=== PATIENT | male | born 1950 | race American Indian/Alaskan Native ===

== ENCOUNTER 2016-03-30 14:19 | Outpatient (CLI) | payer MEDICARE, OTHER ==
--- NOTE | 2016-03-30 15:10 | XRay Report ---
CHEST 2 VIEWS INDICATION: Cough. COMPARISON: 11/26/2015 FINDINGS: Frontal and lateral chest radiographs again demonstrate normal cardiomediastinal silhouette, mild aortic knob calcifications and clear lungs without pleural effusions or CHF. Multilevel thoracic spondylosis. CONCLUSION: No acute disease. Thank you for the opportunity to participate in this patient's care.
== END 2016-03-30 14:20 | disposition home or self-care (01) ==
LOC: XRAY 14:19
PROVIDERS: ATTEND Internal Medicine
DX: M47.894 Other spondylosis, thoracic region (principal); I70.0 Atherosclerosis of aorta; R10.12 Left upper quadrant pain
CPT/HCPCS: 71020

== ENCOUNTER 2018-12-06 00:19 | Emergency (ER) | payer MEDICARE, OTHER ==
[2018-12-06 01:09] LABS: Basophils % (Auto) 0.3 % (0.0-1.8); Eosinophils # (Auto) 0.5 K/mm3 (0.0-0.4); Eosinophils % (Auto) 4.6 % (0.0-4.3); Hematocrit 44.9 % (35.5-45.6); Hemoglobin 14.9 gm/dl (11.8-15.2); Lymphocytes % (Auto) 29.3 % (13.4-35.0); Mean Corpuscular HGB Conc 33 % (32-34); Mean Corpuscular Volume 97 fl (84-94); Monocytes # (Auto) 0.7 K/mm3 (0.0-0.8); Monocytes % (Auto) 6.9 % (0.0-7.3); Platelet Count 231 K/mm3 (140-440); Red Blood Count 4.65 M/mm3 (3.65-5.03); Red Cell Distribution Width 13.3 % (13.2-15.2)
--- NOTE | 2018-12-06 01:13 | XRay Report ---
CHEST 1 VIEW INDICATION / CLINICAL INFORMATION: Chest Pain. COMPARISON: 07/13/2017 FINDINGS: SUPPORT DEVICES: None. HEART / MEDIASTINUM: No significant abnormality. LUNGS / PLEURA: No significant pulmonary or pleural abnormality. No pneumothorax. ADDITIONAL FINDINGS: No significant additional findings. IMPRESSION: 1. No significant change Signer Name: Cem Vickers MD Signed: 12/06/2018 1:08 AM Workstation Name: [id number]
[2018-12-06 01:20] LABS: BUN/Creatinine Ratio 11; Blood Urea Nitrogen 20 mg/dL (9-20); Hemolysis Index 39
[2018-12-06] MEDS ORDERED: LIDOCAINE 2%/EPINEPHRINE 1:200,000 VIAL (20 ML) INFILTRATI ONE (01:52)
[2018-12-06] MEDS ORDERED: hydrALAZINE 20 MG/1 ML INJ IV ONE (01:52)
[2018-12-06] MEDS ORDERED: MORPHINE 4 MG/1 ML INJ IV ONE (01:52)
--- NOTE | 2018-12-06 01:54 | Emergency Department Report ---
ED General Adult HPI - General Chief complaint: Dyspnea/Respdistress Stated complaint: DOMINGO, BACK PAIN, CHEST PAIN Time Seen by Provider: 12/06/18 01:19 Source: patient, RN notes reviewed, old records reviewed Mode of arrival: Ambulatory Limitations: No Limitations - History of Present Illness Initial comments: This is a 68-year-old gentleman. This patient is not known to this provider previously. He has a primary care doctor but cannot recall their name. Past medical history includes renal insufficiency, hypertension, compression fracture Patient had a low probability nuclear medicine study at this hospital June 2018. The patient presents to the ER with a primary complaint of nontraumatic right- sided trapezius and paracervical pain. The pain started at 4:00 PM yesterday. The pain is sharp and throbbing, increases with palpation, decreases with rest in position. It moves to other parts of the trapezius. It does not cross midline. It also increases with cough. Patient has a chronic cough for a few months. The patient denies DVT, pulmonary embolus risk factors. He denies chest pain. He has chronic shortness of breath which is not new, worsening or different. He denies vomiting and diaphoresis. He indicates no recent trauma, and no recent repetitive activity or range of motion. The patient also denies recent chiropractic manipulation, or low mechanism motor vehicle accident. -: Gradual, hour(s) Location: back, right Radiation: back Quality: aching Consistency: intermittent Improves with: other Worsens with: other - Related Data Previous Rx's Medication Instructions Recorded Last Taken Type Acetaminophen [Non-Aspirin Extra 500 mg PO Q6HR PRN #30 tablet 12/06/18 Unknown Rx Strength] Menthol/Camphor [B[place] 50 gm TP QID PRN #1 cream..g. 12/06/18 Unknown Rx Neck-Shoulder Cream] Allergies Allergy/AdvReac Type Severity Reaction Status Date / Time ibuprofen [From Motrin] AdvReac Hives Verified 07/13/18 12:08 ED Review of Systems ROS: Stated complaint: DOMINGO, BACK PAIN, CHEST PAIN Other details as noted in HPI Constitutional: denies: chills, fever, weakness Eyes: denies: eye discharge Respiratory: cough Cardiovascular: denies: chest pain, syncope Gastrointestinal: denies: abdominal pain, nausea, vomiting Musculoskeletal: back pain Skin: denies: lesions Neurological: denies: weakness, numbness, paresthesias, confusion Psychiatric: anxiety Hematological/Lymphatic: denies: easy bleeding ED Past Medical Hx - Past Medical History Previous Medical History?: Yes Hx Hypertension: Yes Hx Heart Attack/AMI: No Hx Congestive Heart Failure: No Hx Diabetes: No Hx Deep Vein Thrombosis: No Hx Pulmonary Embolism: No Hx Liver Disease: No Hx Renal Disease: No Hx Sickle Cell Disease: No Hx Arthritis: No Hx Headaches / Migraines: No Hx Seizures: No Hx Kidney Stones: No Hx Asthma: No Hx COPD: No Hx Tuberculosis: No Hx Dementia: No Hx HIV: No Additional medical history: hiatal hernia. States left chest trauma with broken ribs and punctured lung years ago. - Surgical History Past Surgical History?: No Hx Coronary Stent: No Hx Pacemaker: No Hx Internal Defibrillator: No - Social History Smoking Status: Never Smoker Substance Use Type: None - Medications Home Medications: Home Medications Medication Instructions Recorded Confirmed Last Taken Type Acetaminophen [Non-Aspirin Extra 500 mg PO Q6HR PRN #30 tablet 12/06/18 Unknown Rx Strength] Menthol/Camphor [[place] 50 gm TP QID PRN #1 cream..g. 12/06/18 Unknown Rx Neck-Shoulder Cream] ED Physical Exam - General Limitations: No Limitations General appearance: alert, anxious, obese - Head Head exam: Present: atraumatic, normocephalic - Eye Eye exam: Present: normal appearance, EOMI. Absent: nystagmus - ENT ENT exam: Present: normal exam, normal orophraynx, mucous membranes moist, normal external ear exam - Neck Neck exam: Present: normal inspection, tenderness (there is reproducible right sided paracervical tenderness and trapezius tenderness. There is reproducible point tenderness on the trapezius.), full ROM, other (is no carotid bruit. There is no carotid hematoma. There is no expansile bleeding.) - Respiratory Respiratory exam: Present: normal lung sounds bilaterally. Absent: respiratory distress - Cardiovascular Cardiovascular Exam: Present: regular rate, normal rhythm, normal heart sounds. Absent: bradycardia, tachycardia, irregular rhythm, systolic murmur, diastolic murmur, rubs, gallop - GI/Abdominal GI/Abdominal exam: Present: soft, normal bowel sounds. Absent: distended, tenderness, guarding, rebound, rigid, pulsatile mass - Rectal Rectal exam: Present: deferred - Extremities Exam Extremities exam: Present: normal inspection, full ROM, other (2+ pulses noted in the bilateral upper, lower extremities. Compartments soft. No long bony tenderness. The pelvis is stable.). Absent: pedal edema, joint swelling, calf tenderness - Back Exam Back exam: Present: normal inspection, full ROM, muscle spasm, paraspinal tenderness. Absent: CVA tenderness (R), CVA tenderness (L) - Neurological Exam Neurological exam: Present: alert, oriented X3, other (Extraocular movements intact. Tongue midline. No facial droop. Facial sensation intact to light touch in the V1, V2, V3 distribution bilaterally. 5 and 5 strength in 4 extremities.. Sensation is intact to light touch in 4 extremities.). Absent: motor sensory deficit - Psychiatric Psychiatric exam: Present: anxious - Skin Skin exam: Present: warm, dry, intact, normal color. Absent: rash ED Course Vital Signs 12/06/18 12/06/18 12/06/18 00:30 00:33 02:02 Temperature 98.0 F Pulse Rate 73 61 Respiratory 17 20 10 L Rate Blood Pressure 190/100 Blood Pressure [Right] O2 Sat by Pulse 97 97 Oximetry 12/06/18 12/06/18 12/06/18 02:10 02:30 03:00 Temperature Pulse Rate 65 65 79 Respiratory 22 17 Rate Blood Pressure 176/96 155/74 176/81 Blood Pressure [Right] O2 Sat by Pulse Oximetry 12/06/18 12/06/18 12/06/18 03:30 04:00 04:38 Temperature Pulse Rate 76 76 85 Respiratory 13 21 17 Rate Blood Pressure 166/88 176/93 Blood Pressure 157/96 [Right] O2 Sat by Pulse 97 Oximetry - Reevaluation(s) Reevaluation #1: 12/06/18 02:23 Differential diagnosis, including but not limited to: Trapezius sprain, strain, muscle cramp, pulmonary embolism, pneumonia, obstructive sleep apnea, obesity hypoventilation syndrome Assessment and plan: 68-year-old gentleman, appears to be obese, with complaint of cough for months, now with reproducible pleuritic right-sided trapezius pain, suspect musculoskeletal etiology. He does not endorse chest pain to this provider. EKG unchanged times prior. This is unlikely to be acute coronary syndrome. We will treat his symptoms. Elevated blood pressure is reviewed and appreciated. This is likely secondary to pain. Has equal pulses in the upper, lower extremities, x-ray of the chest appears to be unchanged from prior, we do not suspect aortic disease at this time. Reevaluation #2: 12/06/18 03:26 Troponin is negative 2. D-dimer is negative. Blood pressure improved, now in the 150s. Endorses improvement in symptoms. Pain is still present. Patient will be discharged with prescription for nonnarcotic pain medication, he'll need to follow up with his outpatient primary care doctor for physical therapy. We discussed return precautions. The patient has verbalized understanding. He can follow up with his primary care doctor or community health counselor for his elevated blood pressure, and acute on chronic cough and shortness of breath. Of note, the patient endorses intermittent compliance with his CPAP. We discussed the importance of long-term CPAP compliance. Reevaluation #3: 12/06/18 04:33 Patient sleeping comfortably and is in no acute distress. Blood pressure 144 over 70s. Appears quite comfortable. - Procedure Description Procedures done: After verbal informed consent was obtained, the patient's right trapezius was cleansed in typical aseptic fashion with alcohol swabs. Then, 6 mL of 2% lidocaine with epinephrine were drawn up in a syringe, and patient had 3 individual trigger point injections administered by myself, approximately 2 mL each, using a 26-gauge needle. Patient endorses improvement of symptoms after trigger point injections. No obvious significant bleeding or complications were noted, the patient tolerated the procedure well. ED Medical Decision Making - Lab Data Result diagrams: 12/06/18 00:36 12/06/18 00:36 Vital Signs (72 hours) 12/06/18 12/06/18 00:33 02:10 Temperature 98.0 F Pulse Rate 73 65 Respiratory 20 Rate Blood Pressure 190/100 176/96 O2 Sat by Pulse 97 Oximetry Lab Results 12/06/18 12/06/18 Range/Units 00:36 00:36 WBC 10.3 (4.5-11.0) K/mm3 RBC 4.65 (3.65-5.03) M/mm3 Hgb 14.9 (11.8-15.2) gm/dl Hct 44.9 (35.5-45.6) % MCV 97 H (84-94) fl MCH 32 (28-32) pg MCHC 33 (32-34) % RDW 13.3 (13.2-15.2) % Plt Count 231 (140-440) K/mm3 Lymph % (Auto) 29.3 (13.4-35.0) % [place] % (Auto) 6.9 (0.0-7.3) % Eos % (Auto) 4.6 H (0.0-4.3) % Baso % (Auto) 0.3 (0.0-1.8) % Lymph # 3.0 (1.2-5.4) K/mm3 [place] # 0.7 (0.0-0.8) K/mm3 Eos # 0.5 H (0.0-0.4) K/mm3 Baso # 0.0 (0.0-0.1) K/mm3 Seg Neutrophils % 58.9 (40.0-70.0) % Seg Neutrophils # 6.1 (1.8-7.7) K/mm3 Sodium 144 (137-145) mmol/L Potassium 4.4 (3.6-5.0) mmol/L Chloride 106.5 (98-107) mmol/L Carbon Dioxide 28 (22-30) mmol/L Anion Gap 14 mmol/L BUN 20 (9-20) mg/dL Creatinine 1.8 H (0.8-1.5) mg/dL Estimated GFR 45 ml/min BUN/Creatinine Ratio 11 % Glucose 112 H (75-100) mg/dL Calcium 9.0 (8.4-10.2) mg/dL Troponin T < 0.010 (0.00-0.029) ng/mL - EKG Data -: EKG Interpreted by Ks EKG shows normal: sinus rhythm Rate: normal - EKG Data 12/06/18 02:22 EKG #1 shows a sinus rhythm, 80 beats per minute , there is a left axis deviation, there is a left anterior fascicular block, there is motion artifact, the QTC is within normal limits, there is low voltage in the lateral leads, the EKG is abnormal, it is not consistent with ST elevation myocardial infarction. When compared to prior EKG from June 2018, appears to be grossly unchanged EKG #2 appears to be unchanged from prior, although left axis deviation appears to be less prominent Neither EKG is consistent with ST elevation myocardial infarction. - Radiology Data Radiology results: pending, report reviewed, image reviewed Print Report Referring Physician: ED RENETTA Patient Name: CHE BARRETT Date of : 1950 Sex: Male Report Date: 2018-12-06 Report Status: Finalized Findings [facility] [address] [place] [address] XRay Report Signed Patient: CHE BARRETT JR MR#: [id number] : 1950 Acct:[id number] Age/Sex: 68 / M ADM Date: 12/06/18 Loc: ED Attending Dr: Ordering Physician: JOBY JACKSON MD Date of Service: 12/06/18 Procedure(s): XR chest 1V ap Accession Number(s): [id number] cc: ED MD RENETTA Fluoro Time In Minutes: CHEST 1 VIEW INDICATION / CLINICAL INFORMATION: Chest Pain. COMPARISON: 07/13/2017 FINDINGS: SUPPORT DEVICES: None. HEART / MEDIASTINUM: No significant abnormality. LUNGS / PLEURA: No significant pulmonary or pleural abnormality. No pneumothorax. ADDITIONAL FINDINGS: No significant additional findings. IMPRESSION: 1. No significant change Signer Name: Cem Vickers MD Signed: 12/06/2018 1:08 AM Workstation Name: [id number] Transcribed By: YUSUF Dictated By: Cem Vickers MD Electronically Authenticated By: Cem Vickers MD Signed Date/Time: 12/06/18 0108 Ordering Physician: YAZMIN BURRIS Date of Service: 07/13/18 Procedure(s): XR chest routine 2V Accession Number(s): [id number] cc: YAZMIN BURRIS Fluoro Time In Minutes: PROCEDURE: XR CHEST ROUTINE 2V TECHNIQUE: PA and lateral chest radiographs were obtained. HISTORY: Chest Pain COMPARISONS: None. FINDINGS: Heart: Normal. Mediastinum/Vessels: Normal. Lungs/Pleural space: Normal. Bony thorax: No acute osseous abnormality. IMPRESSION: No acute process in the chest. This document is electronically signed by Adriane Hoyos., Jul 13 2018 03:53:37 PM ET Transcribed By: MG Dictated By: ADRIANE DUENAS MD Electronically Authenticated By: ADRIANE DUENAS MD Critical care attestation.: If time is entered above; I have spent that time in minutes in the direct care of this critically ill patient, excluding procedure time. ED Disposition Clinical Impression: Trapezius strain Qualifiers: Encounter type: initial encounter Laterality: right Qualified Code(s): S46.811A - Strain of other muscles, fascia and tendons at shoulder and upper arm level, right arm, initial encounter Hypertension Qualifiers: Hypertension type: unspecified Qualified Code(s): I10 - Essential (primary) hypertension Disposition: - TO HOME OR SELFCARE Is pt being admited?: No Does the pt Need Aspirin: No Condition: Stable Instructions: Hypertension (ED) Additional Instructions: Rest, avoid heavy lifting, and avoid strenuous physical activity. Take the pain medication as needed/directed. Patient may pursue alternative complementary therapy, such as massage, acupuncture, and alternating heat packs and ice packs. Recommend patient follow-up with an outpatient primary care doctor or community health counselor within the next 7 days for complaint of intermittent shortness of breath and high blood pressure. Recommend that patient uses CPAP every night as directed, and he should follow-up with his sleep specialist within the next 2 weeks to have setting this evaluated. Return to the emergency room right away with projectile vomiting, change in mental status, confusion, inability to tolerate liquid feeds, new, worsening or different symptoms not present on the initial emergency room evaluation. Prescriptions: Acetaminophen [Non-Aspirin Extra Strength] 500 mg PO Q6HR PRN #30 tablet PRN Reason: Pain , Severe (7-10) Menthol/Camphor [B[place] Neck-Shoulder Cream] 50 gm TP QID PRN #1 cream..g. PRN Reason: Pain , Severe (7-10) Referrals: PRIMARY CARE, [Referring] - 3-5 Days [facility] [Provider Group] - 3-5 Days [facility] [Provider Group] - 3-5 Days
[2018-12-06] MEDS ORDERED: ACETAMINOPHEN 325 MG TAB PO ONE (03:09)
[2018-12-06] MEDS ORDERED: LORazepam 2 MG/ML VIAL IV STA (03:32)
[2018-12-06 04:39] VITALS: BP 157/96
== END 2018-12-06 04:44 | disposition home or self-care (01) ==
LOC: ED 00:19
DX: S46.811A Strain of other muscles, fascia and tendons at shoulder and upper arm level, right arm, initial encounter (principal); I10 Essential (primary) hypertension; Z88.5 Allergy status to narcotic agent; Z79.899 Other long term (current) drug therapy; X58.XXXA Exposure to other specified factors, initial encounter; Y93.89 Activity, other specified; Y92.89 Other specified places as the place of occurrence of the external cause; Y99.8 Other external cause status
CPT/HCPCS: 36415; 71045; 80048; 82550; 83735; 84484; 85025; 85379; 93005; 93010; 96374; 96375; 99284; J0360; J2060; J2270

== ENCOUNTER 2018-12-18 11:18 | Outpatient (CLI) | payer MEDICARE, OTHER ==
[2018-12-18 12:25] LABS: Bilirubin,Urine NEG (Negative); Blood,Urine NEG (Negative); Color,Urine Yellow (Yellow); Protein,Urine <15 mg/dL mg/dL (Negative); Urobilinogen,Urine < 2.0 mg/dL (<2.0); WBC,Urine < 1.0 /HPF (0.0-6.0)
[2018-12-18 12:29] LABS: Chol/HDL Ratio 3.63 %
[2018-12-18 13:04] LABS: Microalbumin/Creatinine Ratio 8.2 ug/mg
[2018-12-22 15:08] LABS: Vitamin D, 25-OH, D2 <4 ng/mL
== END 2018-12-18 11:19 | disposition home or self-care (01) ==
LOC: LAB 11:18
PROVIDERS: ATTEND Internal Medicine
DX: R73.03 Prediabetes (principal); E78.5 Hyperlipidemia, unspecified; E66.9 Obesity, unspecified; E55.9 Vitamin D deficiency, unspecified; I12.9 Hypertensive chronic kidney disease with stage 1 through stage 4 chronic kidney disease, or unspecified chronic kidney disease; N18.3 Chronic kidney disease, stage 3 (moderate); E78.00 Pure hypercholesterolemia, unspecified
CPT/HCPCS: 36415; 80061; 81001; 82043; 82306; 82607; 83036; 84443

== ENCOUNTER 2020-06-10 07:33 | Day surgery (SDC) | payer MEDICARE, OTHER ==
--- NOTE | 2020-06-07 12:03 | Anesthesia Consultation ---
Anesthesia Consult and Med Hx Date of service: 06/10/20 - Airway Anesthetic Teeth Evaluation: Dentures ROM Head & Neck: Adequate Mental/Hyoid Distance: Adequate Mallampati Class: Class II Intubation Access Assessment: Probably Good - Pulmonary Exam CTA: Yes - Cardiac Exam Cardiac Exam: RRR - Pre-Operative Health Status ASA Pre-Surgery Classification: ASA2 Proposed Anesthetic Plan: General Nerve Block: IS - Pulmonary Hx Smoking: No Hx Respiratory Symptoms: No Hx Sleep Apnea: Yes (compliant with CPAP) - Cardiovascular System Hx Hypertension: Yes Hx Heart Attack/AMI: No (>4mets functional capacity) Hx Percutaneous Transluminal Coronary Angioplasty (PTCA): No - Central Nervous System CVA: No - Endocrine Hx Renal Disease: Yes (CKD) Hx Liver Disease: No Hx Insulin Dependent Diabetes: No Hx Non-Insulin Dependent Diabetes: No Hx Thyroid Disease: No - Other Systems Hx Obesity: Yes (BMI 36) - Additional Comments Anesthesia Medical History Comments: No hx anesthetic complications.
[~2020-06-10 07:33] MED LIST: ACETAMINOPHEN 500 MG TAB PO SCH; BACTERIOSTATIC SODIUM CHLORIDE 0.9% 30 ML VIAL INFILTRATI ONE; EPINEPHrine/PF 1 MG/1 ML INJ ONE; LACTATED RINGERS 1,000 ML IV SCH; LIDOCAINE MPF (2%) 20 MG/1 ML VIAL 5 ML ONE; MIDAZOLAM 2 MG/2 ML INJ IV NR; ONDANSETRON 4 MG/2 ML INJ ONE; ceFAZolin/Water 2 GM/20 ML 2 GM/20 ML SYRINGE IV NR; dexAMETHasone 20 MG/5 ML VIAL ONE; fentaNYL 100 MCG/2 ML INJ IV PRN; fentaNYL 100 MCG/2 ML INJ ONE; methylPREDNISolone ACETATE 40 MG/1 ML INJ ONE; propofoL 200 MG/20 ML VIAL IV ONE
--- NOTE | 2020-06-10 07:33 | Anesthesia Day of Surgery ---
Anesthesia Day of Surgery - Day of Surgery Patient Examined: Yes Patient H&P Reviewed: Yes Patient is NPO: Yes
[2020-06-10] MEDS ORDERED: dexAMETHasone 4 MG/ML VIAL ONE (07:34)
[2020-06-10] MEDS ORDERED: SUCCINYLCHOLINE CHLORIDE 200 MG/10 ML INJ MDV ONE (07:34)
[2020-06-10] MEDS ORDERED: BUPIVACAINE/PF (0.25%) 2.5 MG/ML 30 ML VIAL INFILTRATI ONE (07:34)
[2020-06-10] MEDS ORDERED: ONDANSETRON 4 MG/2 ML INJ IV PRN (08:30)
[2020-06-10] MEDS ORDERED: fentaNYL 100 MCG/2 ML INJ IV PRN (08:30)
[2020-06-10] MEDS ORDERED: ePHEDrine SULFATE 50 MG/1 ML INJ ONE (08:41)
[2020-06-10] MEDS ORDERED: .SODIUM CHLORIDE 0.9% IRRIG SOLN 3000 ML IR ONE (09:13)
[2020-06-10] MEDS ORDERED: EPINEPHrine/PF 1 MG/1 ML INJ IV ONE (09:13)
[2020-06-10] MEDS ORDERED: SODIUM CHLORIDE P/F VIAL 10 ML 10 ML ONE (09:40)
[2020-06-10] MEDS ORDERED: LACTATED RINGERS 1,000 ML ONE (10:12)
--- NOTE | 2020-06-10 10:23 | Procedure Note ---
Date of procedure: 06/10/20 Pre-op diagnosis: Right shoulder pain Post-op diagnosis: other (Impingement syndrome right shoulder) Procedure: Arthroscopy [right] shoulder with subacromial decompression Procedure The patient was brought to the OR after being given a scalene nerve block for postop pain management, he was placed on the table supine following induction with MAC anesthesia patient was turned into the [left] lateral decubitus position at which point the right shoulder was prepped and draped in the usual sterile manner. A timeout procedure was done to identify the patient and the correct operative site. Routine arthroscopic portals were made into the subacromial space examination of the subacromial space revealed patient had abundant bursal thickening with apparent partial thickness tears in the supraspinatus tendon along with a large bone spur noted at the distal acromion using a combination of arthroscopic shaver and tissue ablator the subacromial space was debrided of soft tissue and the arm was then rotated internally and externally to see if there were a full-thickness rotator cuff tear done was seen next the arthroscope was placed into the glenohumeral joint and examination here revealed the patient to have very little in the way of arthritic changes along the humeral head. In the glenoid fossa he was noted to have thinning of the labral tissue the biceps labral complex appeared to be intact without any undue tension noted next the arthroscope was removed from the glenohumeral joint and then repositioned into the subacromial space using a 5.5 bur or acromionizer the bone spurs were debrided. A second look was done to see if there are any any residual bony and soft tissue debris and none was seen the arthroscope was then removed the stab wounds were repaired routine postop dressings were applied and the patient tolerated the procedure Anesthesia: MAC, regional Surgeon: DEMETRI VAZQUEZ (Kerri Cochran, 1st assist) Estimated blood loss: minimal Pathology: none Condition: stable Disposition: PACU
[2020-06-10 11:06] VITALS: BP 118/78
--- NOTE | 2020-06-10 12:51 | Post Anesthesia Evaluation ---
- Post Anesthesia Evaluation Patient Participated: Yes Airway Patent: Yes Stable Respiratory Function: Yes Nausea/Vomiting: No Temp > 96.8F: Yes Pain Manageable: Yes Adequeate Hydration: Yes Anesthesia Complications: No Block Receding Appropriately: Yes (sling provided)
== END 2020-06-10 11:50 | disposition home or self-care (01) ==
LOC: OR 07:33
PROVIDERS: ATTEND Orthopaedic Surgery
DX: M25.511 Pain in right shoulder (principal); M75.41 Impingement syndrome of right shoulder; Z20.822 Contact with and (suspected) exposure to COVID-19; I12.9 Hypertensive chronic kidney disease with stage 1 through stage 4 chronic kidney disease, or unspecified chronic kidney disease; N18.30 Chronic kidney disease, stage 3 unspecified; E78.00 Pure hypercholesterolemia, unspecified; J44.9 Chronic obstructive pulmonary disease, unspecified; G47.30 Sleep apnea, unspecified; E66.9 Obesity, unspecified; Z88.8 Allergy status to other drugs, medicaments and biological substances; Z98.52 Vasectomy status; Z79.899 Other long term (current) drug therapy; Z68.36 Body mass index [BMI] 36.0-36.9, adult
CPT/HCPCS: 29822; 64415; A4217; J0171; J0330; J0690; J1030; J1100; J2250; J2405; J2704; J3010; J7120; U0003; V2790

== ENCOUNTER 2020-12-12 03:35 | Emergency (ER) | payer MEDICARE, OTHER ==
[2020-12-12] MEDS ORDERED: ONDANSETRON 4 MG/2 ML INJ IV ONE (04:10)
[2020-12-12] MEDS ORDERED: MORPHINE 2 MG/1 ML INJ IV ONE (04:10)
--- NOTE | 2020-12-12 04:13 | Emergency Department Report ---
<MICHAEL PEREZ C - Last Filed: 12/12/20 08:56> ED Abdominal Pain HPI - General Chief Complaint: Chest Pain Stated Complaint: CHEST/ABDOMINAL PAIN Time Seen by Provider: 12/12/20 03:49 - Related Data Home Medications Medication Instructions Recorded Confirmed Last Taken Cetirizine HCl 10 mg PO DAILY 06/01/20 12/12/20 06/09/20 21:00 Valsartan 160 mg PO DAILY 06/01/20 12/12/20 1 Day Ago ~12/11/20 Previous Rx's Medication Instructions Recorded Last Taken Type oxyCODONE /ACETAMINOPHEN [Percocet 1 tab PO Q6HR PRN #30 tablet 06/10/20 Unknown Rx 5/325] Famotidine [Pepcid] 20 mg PO BID #20 tablet 12/12/20 Unknown Rx Ondansetron [Zofran Odt] 4 mg PO Q8HR #20 tab.rapdis 12/12/20 Unknown Rx levoFLOXacin [Levaquin] 750 mg PO QDAY #7 tablet 12/12/20 Unknown Rx traMADoL [Ultram 50 MG tab] 50 mg PO Q6HR PRN #15 tablet 12/12/20 Unknown Rx Allergies Allergy/AdvReac Type Severity Reaction Status Date / Time ibuprofen [From Motrin] AdvReac Hives Verified 07/13/18 12:08 ED Past Medical Hx - Medications Home Medications: Home Medications Medication Instructions Recorded Confirmed Last Taken Type Cetirizine HCl 10 mg PO DAILY 06/01/20 12/12/20 06/09/20 21:00 History Valsartan 160 mg PO DAILY 06/01/20 12/12/20 1 Day Ago History ~12/11/20 oxyCODONE /ACETAMINOPHEN [Percocet 1 tab PO Q6HR PRN #30 tablet 06/10/20 12/12/20 Unknown Rx 5/325] Famotidine [Pepcid] 20 mg PO BID #20 tablet 12/12/20 Unknown Rx Ondansetron [Zofran Odt] 4 mg PO Q8HR #20 tab.rapdis 12/12/20 Unknown Rx levoFLOXacin [Levaquin] 750 mg PO QDAY #7 tablet 12/12/20 Unknown Rx traMADoL [Ultram 50 MG tab] 50 mg PO Q6HR PRN #15 tablet 12/12/20 Unknown Rx ED Course - Reevaluation(s) Reevaluation #1: 12/12/20 08:43 Patient states he feels much better than when he initially came to the department. He denies chest pain, abdominal pain, nausea, or vomiting - Consultations Consultation #1: 12/12/20 08:[address] Lanier general surgeon bail bonding agent recommends p.o. Levaquin and follow-up in office at 9 AM tomorrow ED Medical Decision Making - Lab Data Result diagrams: 12/12/20 04:16 12/12/20 04:16 Lab Results 12/12/20 12/12/20 12/12/20 Range/Units 04:16 04:16 04:16 WBC 9.4 (4.5-11.0) K/mm3 RBC 4.59 (3.65-5.03) M/mm3 Hgb 15.0 (11.8-15.2) gm/dl Hct 43.9 (35.5-45.6) % MCV 96 H (84-94) fl MCH 33 H (28-32) pg MCHC 34 (32-34) % RDW 13.4 (13.2-15.2) % Plt Count 215 (140-440) K/mm3 Lymph % (Auto) 17.2 (13.4-35.0) % [place] % (Auto) 5.6 (0.0-7.3) % Eos % (Auto) 1.6 (0.0-4.3) % Baso % (Auto) 0.9 (0.0-1.8) % Lymph # (Auto) 1.6 (1.2-5.4) K/mm3 [place] # (Auto) 0.5 (0.0-0.8) K/mm3 Eos # (Auto) 0.1 (0.0-0.4) K/mm3 Baso # (Auto) 0.1 (0.0-0.1) K/mm3 Seg Neutrophils % 74.7 H (40.0-70.0) % Seg Neutrophils # 7.0 (1.8-7.7) K/mm3 PT 13.0 (12.2-14.9) Sec. INR 0.88 (0.87-1.13) APTT 26.8 (24.2-36.6) Sec. Sodium 143 (137-145) mmol/L Potassium 4.5 (3.6-5.0) mmol/L Chloride 104.2 (98-107) mmol/L Carbon Dioxide 24 (22-30) mmol/L Anion Gap 19 mmol/L BUN 20 (9-20) mg/dL Creatinine 2.0 H (0.8-1.3) mg/dL Estimated GFR 40 ml/min BUN/Creatinine Ratio 10 % Glucose 118 H (75-100) mg/dL Calcium 10.0 (8.4-10.2) mg/dL Total Bilirubin 0.50 (0.1-1.2) mg/dL Direct Bilirubin < 0.2 (0-0.2) mg/dL Indirect Bilirubin 0.3 mg/dL AST 23 (5-40) units/L ALT 19 (7-56) units/L Alkaline Phosphatase 70 (35-129) units/L Troponin T < 0.010 (0.00-0.029) ng/mL Total Protein 7.7 (6.3-8.2) g/dL Albumin 4.4 (3.9-5) g/dL Albumin/Globulin Ratio 1.3 % Lipase 40 (13-60) units/L 10/17/ Range/Units 07:00 WBC (4.5-11.0) K/mm3 RBC (3.65-5.03) M/mm3 Hgb (11.8-15.2) gm/dl Hct (35.5-45.6) % MCV (84-94) fl MCH (28-32) pg MCHC (32-34) % RDW (13.2-15.2) % Plt Count (140-440) K/mm3 Lymph % (Auto) (13.4-35.0) % [place] % (Auto) (0.0-7.3) % Eos % (Auto) (0.0-4.3) % Baso % (Auto) (0.0-1.8) % Lymph # (Auto) (1.2-5.4) K/mm3 [place] # (Auto) (0.0-0.8) K/mm3 Eos # (Auto) (0.0-0.4) K/mm3 Baso # (Auto) (0.0-0.1) K/mm3 Seg Neutrophils % (40.0-70.0) % Seg Neutrophils # (1.8-7.7) K/mm3 PT (12.2-14.9) Sec. INR (0.87-1.13) APTT (24.2-36.6) Sec. Sodium (137-145) mmol/L Potassium (3.6-5.0) mmol/L Chloride (98-107) mmol/L Carbon Dioxide (22-30) mmol/L Anion Gap mmol/L BUN (9-20) mg/dL Creatinine (0.8-1.3) mg/dL Estimated GFR ml/min BUN/Creatinine Ratio % Glucose (75-100) mg/dL Calcium (8.4-10.2) mg/dL Total Bilirubin (0.1-1.2) mg/dL Direct Bilirubin (0-0.2) mg/dL Indirect Bilirubin mg/dL AST (5-40) units/L ALT (7-56) units/L Alkaline Phosphatase (35-129) units/L Troponin T < 0.010 (0.00-0.029) ng/mL Total Protein (6.3-8.2) g/dL Albumin (3.9-5) g/dL Albumin/Globulin Ratio % Lipase (13-60) units/L - EKG Data 12/12/20 08:47 Repeat EKG performed at 8:13 AM normal sinus without acute changes. No signs of ST elevation [place] - Radiology Data Radiology results: report reviewed CT ABDOMEN AND PELVIS WITHOUT CONTRAST INDICATION / CLINICAL INFORMATION: epigastric pain. TECHNIQUE: Axial CT images were obtained through the abdomen and pelvis without IV contrast. All CT scans at this location are performed using CT dose reduction for ALARA by means of automated exposure control. COMPARISON: None available. FINDINGS: LOWER CHEST: Noncalcified subpleural nodules are seen along the right middle and left lower lobes measuring up to 6.4 mm on image 5 of series 4. There is moderate coronary atherosclerosis. No other significant abnormalities. LIVER: No significant abnormality. GALLBLADDER: Multiple gallstones are seen with mild wall thickening and pericholecystic inflammation. BILE DUCTS: No significant abnormality. PANCREAS: No significant abnormality. SPLEEN: No significant abnormality. ADRENALS: No significant abnormality. KIDNEYS / URETERS: Multiple bilateral renal cysts are again seen measuring up to 8.3 cm along the mid pole of the right kidney. There is moderate renal atrophy without other significant abnormalities. STOMACH / SMALL BOWEL: No significant abnormality. COLON: Noninflammatory diverticulosis, mainly along the descending and sigmoid colon, without other significant abnormalities. APPENDIX: No significant abnormality. PERITONEUM: No free fluid. No free air. No fluid collection. LYMPH NODES: No significant adenopathy. AORTA / ARTERIES: There is mild generalized atherosclerosis. No other significant abnormality. IVC / VEINS: No significant abnormality. URINARY BLADDER: No significant abnormality. REPRODUCTIVE ORGANS: No significant abnormality. ADDITIONAL FINDINGS: None. BONES: No acute findings. Mild degenerative changes of the spine and pelvis are noted. IMPRESSION: 1. Cholelithiasis with suspected acute cholecystitis. 2. No other acute findings. 3. Additional findings as above. - Medical Decision Making Feeling much better. Repeat EKG normal sinus without changes compared to previous. Second troponin also negative and patient does not endorse active chest pain. CT abdomen pelvis significant for cholelithiasis with suspected cholecystitis however, patient does not have fever, elevated white count, or persistent right upper quadrant tenderness on reexamination by myself. Case discussed with Dr. Lanier general surgeon on-call and patient will be treated with Levaquin and follow-up tomorrow morning at 9 AM in the office. Copy of CAT scan report and surgical follow-up provided. Patient does have a primary care doctor was also encouraged to follow-up with his PMD. Critical Care Time: No ED Disposition Clinical Impression: Gastritis, Cholelithiasis, CKD (chronic kidney disease) stage 3, GFR 30-59 ml/min Disposition: 01 HOME / SELF CARE / HOMELESS Is pt being admited?: No Does the pt Need Aspirin: No Condition: Stable Instructions: Gastritis, Adult, [id number], Cholelithiasis, Food Basics for Chronic Kidney Disease Additional Instructions: Take the medication as prescribed. Follow-up with general surgeon Dr. Lanier tomorrow at 9 AM. Return if symptoms worsen as indicated by your discharge instructions. You have been provided a copy of the CAT scan report for follow- up Prescriptions: levoFLOXacin [Levaquin] 750 mg PO QDAY #7 tablet Famotidine [Pepcid] 20 mg PO BID #20 tablet traMADoL [Ultram 50 MG tab] 50 mg PO Q6HR PRN #15 tablet PRN Reason: Pain Ondansetron [Zofran Odt] 4 mg PO Q8HR #20 tab.carolynedis Referrals: your, PMD [Other] - 3-5 Days SERENA LANIER MD [Staff Physician] - 12/13/20 9:00 am Time of Disposition: 08:57 <LUKE CHUN - Last Filed: 12/13/20 04:55> ED Abdominal Pain HPI - General Source: patient Mode of arrival: Ambulatory Limitations: No Limitations - History of Present Illness Initial Comments: 70-year-old male, history of chronic kidney disease, presents to ED with complaint of chest and abdominal pain. Patient states symptoms began last night after eating [place] food. He states he initially began having some epigastric burning pain along with nausea. Patient states he then vomited. After vomiting, patient states he began having some chest pain. He denies any shortness of breath, fever, diarrhea. Patient states he took some Tums at home without relief. He states the chest pain has resolved but he is still having the burning pain in his abdomen. Complaint: abdominal pain -: Last night Location: epigastric Radiation: chest Severity: moderate Quality: burning Consistency: constant Improves With: nothing Worsens With: nothing Associated Symptoms: nausea, vomiting. denies: diarrhea, fever ED Review of Systems ROS: Stated complaint: CHEST/ABDOMINAL PAIN Other details as noted in HPI Comment: All other systems reviewed and negative Constitutional: denies: chills, fever Cardiovascular: chest pain Gastrointestinal: abdominal pain, nausea, vomiting. denies: diarrhea ED Past Medical Hx - Past Medical History Previous Medical History?: Yes Hx Hypertension: Yes Hx Heart Attack/AMI: No Hx Congestive Heart Failure: No Hx Diabetes: No Hx Deep Vein Thrombosis: No Hx Pulmonary Embolism: No Hx Liver Disease: No Hx Renal Disease: No Hx Sickle Cell Disease: No Hx Arthritis: No Hx Headaches / Migraines: No Hx Seizures: No Hx Kidney Stones: No Hx Asthma: No Hx COPD: Yes Hx Tuberculosis: No Hx Dementia: No Hx HIV: No Additional medical history: hiatal hernia. States left chest trauma with broken ribs and punctured lung years ago. - Surgical History Past Surgical History?: No Hx Coronary Stent: No Hx Pacemaker: No Hx Internal Defibrillator: No - Social History Smoking Status: Never Smoker ED Physical Exam - General Limitations: No Limitations General appearance: alert, in no apparent distress - Head Head exam: Present: atraumatic, normocephalic - Eye Eye exam: Present: normal appearance, EOMI - ENT ENT exam: Present: mucous membranes moist - Neck Neck exam: Present: normal inspection - Respiratory Respiratory exam: Present: normal lung sounds bilaterally. Absent: respiratory distress - Cardiovascular Cardiovascular Exam: Present: regular rate, normal rhythm - GI/Abdominal GI/Abdominal exam: Present: soft, tenderness (Epigastric). Absent: distended - Extremities Exam Extremities exam: Present: normal inspection - Neurological Exam Neurological exam: Present: alert, oriented X3 - Psychiatric Psychiatric exam: Present: normal affect, normal mood - Skin Skin exam: Present: warm, dry, intact, normal color ED Course Vital Signs 12/12/20 12/12/20 12/12/20 03:42 05:07 05:12 Temperature 97.3 F L 98.1 F Pulse Rate 71 66 Respiratory 18 18 Rate Blood Pressure 204/106 O2 Sat by Pulse 100 100 100 Oximetry 12/12/20 12/12/20 05:16 06:05 Temperature 98.1 F Pulse Rate 66 59 L Respiratory 18 16 Rate Blood Pressure 170/95 O2 Sat by Pulse 100 97 Oximetry ED Medical Decision Making - Lab Data Result diagrams: 12/12/20 04:16 12/12/20 04:16 - EKG Data -: EKG Interpreted by [place] EKG shows normal: sinus rhythm, axis, intervals, QRS complexes, ST-T waves Rate: normal - EKG Data Interpretation: no acute changes - Medical Decision Making 70-year-old male presents to ED with epigastric pain, nausea and vomiting. Patient with some epigastric tenderness on exam. EKG is normal. Troponin is negative. Remainder of labs are unremarkable. CT abdomen pelvis has been ordered. Patient signed out to Dr. Perez to follow-up on CT results and second troponin level. - Differential Diagnosis Pancreatitis, gastritis, ACS, bowel obstruction Critical care attestation.: If time is entered above; I have spent that time in minutes in the direct care of this critically ill patient, excluding procedure time.
[2020-12-12 05:00] LABS: Basophils # (Auto) 0.1 K/mm3 (0.0-0.1); Basophils % (Auto) 0.9 % (0.0-1.8); Eosinophils # (Auto) 0.1 K/mm3 (0.0-0.4); Eosinophils % (Auto) 1.6 % (0.0-4.3); Hematocrit 43.9 % (35.5-45.6); Lymphocytes # (Auto) 1.6 K/mm3 (1.2-5.4); Lymphocytes % (Auto) 17.2 % (13.4-35.0); Mean Corpuscular HGB Conc 34 % (32-34); Mean Corpuscular Volume 96 fl (84-94); Monocytes # (Auto) 0.5 K/mm3 (0.0-0.8); Monocytes % (Auto) 5.6 % (0.0-7.3); Platelet Count 215 K/mm3 (140-440); Red Blood Count 4.59 M/mm3 (3.65-5.03); Red Cell Distribution Width 13.4 % (13.2-15.2)
[2020-12-12 05:06] LABS: INR 0.88 (0.87-1.13); Partial Thromboplastin Time 26.8 Sec. (24.2-36.6)
[2020-12-12 05:18] VITALS: BP 170/95
[2020-12-12 05:20] LABS: Alanine Aminotransferase 19 units/L (7-56); Albumin 4.4 g/dL (3.9-5); BUN/Creatinine Ratio 10; Blood Urea Nitrogen 20 mg/dL (9-20); Hemolysis Index 6
[2020-12-12 05:22] LABS: Bilirubin,Direct < 0.2 mg/dL (0-0.2)
--- NOTE | 2020-12-12 06:18 | XRay Report ---
ABDOMEN 3 VIEW(S) INDICATION / CLINICAL INFORMATION: epigastric pain. COMPARISON: 12/06/2018 FINDINGS: TUBES / LINES: None. BOWEL GAS PATTERN: No significant abnormality. FREE AIR / EXTRALUMINAL GAS: None seen. ADDITIONAL FINDINGS: No significant additional findings. CHEST: Visualized chest shows no significant abnormality. IMPRESSION: 1. No significant abnormality. Signer Name: Rajiv Akins DO Signed: 12/12/2020 6:14 AM Workstation Name: [id number]
--- NOTE | 2020-12-12 08:03 | Cat Scan Report ---
CT ABDOMEN AND PELVIS WITHOUT CONTRAST INDICATION / CLINICAL INFORMATION: epigastric pain. TECHNIQUE: Axial CT images were obtained through the abdomen and pelvis without IV contrast. All CT scans at [facility] location are performed using CT dose reduction for ALARA by means of automated exposure control. COMPARISON: None available. FINDINGS: LOWER CHEST: Noncalcified subpleural nodules are seen along the right middle and left lower lobes jeff suring up to 6.4 mm on image 5 of series 4. There is moderate coronary atherosclerosis. No other sign ificant abnormalities. LIVER: No significant abnormality. GALLBLADDER: Multiple gallstones are seen with mild wall thickening and pericholecystic inflammation. BILE DUCTS: No significant abnormality. PANCREAS: No significant abnormality. SPLEEN: No significant abnormality. ADRENALS: No significant abnormality. KIDNEYS / URETERS: Multiple bilateral renal cysts are again seen measuring up to 8.3 cm along the mid pole of the right kidney. There is moderate renal atrophy without other significant abnormalities. STOMACH / SMALL BOWEL: No significant abnormality. COLON: Noninflammatory diverticulosis, mainly along the descending and sigmoid colon, without other s ignificant abnormalities. APPENDIX: No significant abnormality. PERITONEUM: No free fluid. No free air. No fluid collection. LYMPH NODES: No significant adenopathy. AORTA / ARTERIES: There is mild generalized atherosclerosis. No other significant abnormality. IVC / VEINS: No significant abnormality. URINARY BLADDER: No significant abnormality. REPRODUCTIVE ORGANS: No significant abnormality. ADDITIONAL FINDINGS: None. BONES: No acute findings. Mild degenerative changes of the spine and pelvis are noted. IMPRESSION: 1. Cholelithiasis with suspected acute cholecystitis. 2. No other acute findings. 3. Additional findings as above. Signer Name: Jigar Jordan MD Signed: 12/12/2020 7:58 AM Workstation Name: [id number]
[2020-12-12] MEDS ORDERED: levoFLOXacin 750 MG TAB PO ONE (08:56)
--- NOTE | 2020-12-16 10:07 | Electrocardiograph Report ---
[facility] Test Date: 2020-12-12 Test Time: 03:46:30 Pat Name: CHE BARRETT JR Department: Room: Gender: M Clinical Account Manager: MABLE : 1950 Requested By: LUKE CHUN Order Number: [id number] Reading MD: Jeffery Calvo Measurements Intervals [place] Rate: 58 P: 34 [place]: 169 QRS: 3 QRSD: 96 T: 32 QT: 443 QTc: 436 Interpretive Statements Sinus rhythm No previous ECG available for comparison Electronically Signed On 12-16-2020 10:06:36 EDT by Jeffery Calvo
--- NOTE | 2020-12-16 10:09 | Electrocardiograph Report ---
[facility] Test Date: 2020-12-12 Test Time: 08:13:32 Pat Name: CHE BARRETT JR Department: Room: Gender: M Radiological Metallurgist: DENNIS : 1950 Requested By: MICHAEL RILEY Order Number: [id number] Reading MD: Jeffery Calvo Measurements Intervals [place] Rate: 45 P: 9 [place]: 183 QRS: -4 QRSD: 91 T: -2 QT: 471 QTc: 407 Interpretive Statements Dustin sinus bradycardia Poor R wave progression Compared to ECG 12/12/2020 03:46:30 Sinus rate has slowed Electronically Signed On 12-16-2020 10:08:29 EDT by Jeffery Calvo
== END 2020-12-12 09:47 | disposition home or self-care (01) ==
LOC: ED 03:35
DX: K80.20 Calculus of gallbladder without cholecystitis without obstruction (principal); N18.30 Chronic kidney disease, stage 3 unspecified; K29.70 Gastritis, unspecified, without bleeding; Z88.8 Allergy status to other drugs, medicaments and biological substances; I12.9 Hypertensive chronic kidney disease with stage 1 through stage 4 chronic kidney disease, or unspecified chronic kidney disease
CPT/HCPCS: 36415; 74022; 74176; 80048; 80076; 83690; 84484; 85025; 85610; 85730; 93005; 96374; 96375; 99284; J2270; J2405

== ENCOUNTER 2020-12-15 08:21 | Inpatient (IN) | payer MEDICARE, OTHER ==
[2020-12-15] MEDS ORDERED: ASPIRIN 81 MG TAB CHEW PO ONE (08:39)
--- NOTE | 2020-12-15 08:39 | Event Note ---
ED Screening Note Date of service: 12/15/20 Time: 08:31 ED Screening Note: 70-year-old male with history of hypertension presents emergency department chief complaint of left-sided chest pain associated nausea, vomiting and abdominal pain. Started 4 days prior and then subsided and started again this morning at rest. This initial assessment/diagnostic orders/clinical plan/treatment(s) is/are subject to change based on patients health status, clinical progression and re- assessment by fellow clinical providers in the ED. Further treatment and workup at subsequent clinical providers discretion. Patient/guardian urged not to elope from the ED as their condition may be serious if not clinically assessed and managed. Initial orders include: Cardiac protocol, lipase, urine
[2020-12-15] MEDS ORDERED: DICYCLOMINE 20 MG/2 ML INJ IM ONE (08:51)
[2020-12-15] MEDS ORDERED: ONDANSETRON 4 MG/2 ML INJ IV ONE (08:51)
--- NOTE | 2020-12-15 09:00 | Emergency Department Report ---
HPI - General Chief Complaint: Chest Pain Time Seen by Provider: 12/15/20 08:44 - HPI HPI: MSE 3 --> MSE 4 The patient is a 70-year-old male present with a chief complaint of abdominal pain. The patient states he was at this ED 4 days ago with abdominal pain and diagnosed with cholelithiasis. The patient states he followed up with the surgeon who is scheduling him for an ultrasound. The patient states this morning he developed pain in the midepigastric right upper quadrant again with nausea vomiting. Patient denies diarrhea or fever. The patient currently gives his pain a score of 7/10. The patient drove himself to the emergency department and there are no visitors present ED Past Medical Hx - Past Medical History Hx Hypertension: Yes Hx COPD: Yes Additional medical history: hiatal hernia. States left chest trauma with broken ribs and punctured lung years ago. - Family History Family history: no significant - Social History Smoking Status: Never Smoker Substance Use Type: None (Denies illicit drug use), Alcohol (Occasional) - Medications Home Medications: Home Medications Medication Instructions Recorded Confirmed Last Taken Type Cetirizine HCl 10 mg PO DAILY 06/01/20 12/12/20 06/09/20 21:00 History Valsartan 160 mg PO DAILY 06/01/20 12/12/20 1 Day Ago History ~12/11/20 oxyCODONE /ACETAMINOPHEN [Percocet 1 tab PO Q6HR PRN #30 tablet 06/10/20 12/12/20 Unknown Rx 5/325] Famotidine [Pepcid] 20 mg PO BID #20 tablet 12/12/20 Unknown Rx Ondansetron [Zofran Odt] 4 mg PO Q8HR #20 tab.rapdis 12/12/20 Unknown Rx levoFLOXacin [Levaquin] 750 mg PO QDAY #7 tablet 12/12/20 Unknown Rx traMADoL [Ultram 50 MG tab] 50 mg PO Q6HR PRN #15 tablet 12/12/20 Unknown Rx ED Review of Systems ROS: Stated complaint: CHEST PAIN Other details as noted in HPI Constitutional: denies: fever Eyes: denies: eye pain ENT: denies: throat pain Respiratory: no symptoms reported Cardiovascular: denies: dyspnea on exertion Endocrine: no symptoms reported Gastrointestinal: abdominal pain, nausea, vomiting. denies: diarrhea Genitourinary: denies: dysuria Musculoskeletal: denies: back pain Neurological: denies: headache Physical Exam - Physical Exam Vital Signs: Vital Signs 12/15/20 08:39 Temperature 97.8 F Pulse Rate 79 Respiratory 20 Rate Blood Pressure 152/84 O2 Sat by Pulse 99 Oximetry Physical Exam: GENERAL: The patient is well-developed well-nourished male sitting on stretcher holding emesis bag appearing to be in mild discomfort. [] HEENT: Normocephalic. Atraumatic. Extraocular motions are intact. Patient has moist mucous membranes. NECK: Supple. Trachea midline CHEST/LUNGS: Clear to auscultation. There is no respiratory distress noted. HEART/CARDIOVASCULAR: Regular. There is no tachycardia. There is no gallop rub or murmur. ABDOMEN: Abdomen is soft, with tenderness to palpation in the right upper quadrant, midepigastric and left upper quadrant. Patient has normal bowel sounds. There is no abdominal distention. SKIN: There is no rash. There is no edema. There is no diaphoresis. NEURO: The patient is awake, alert, and oriented. The patient is cooperative. The patient has no focal neurologic deficits. The patient has normal speech. GCS 15 MUSCULOSKELETAL: There is no evidence of acute injury. ED Course Vital Signs 12/15/20 08:39 Temperature 97.8 F Pulse Rate 79 Respiratory 20 Rate Blood Pressure 152/84 O2 Sat by Pulse 99 Oximetry - Consultations Consultation #1: 12/15/20 10:17 Surgery paged 12/15/20 10:[address] Lanier-request hospitalist admit we will plan for cholecystectomy. Recommends Zosyn and n.p.o. ED Medical Decision Making - Lab Data Result diagrams: 12/15/20 08:49 12/15/20 08:49 Laboratory Tests 12/15/20 12/15/20 12/15/20 08:49 08:49 08:49 WBC 15.1 H RBC 4.73 Hgb 14.9 Hct 44.9 MCV 95 H MCH 32 MCHC 33 RDW 12.9 L Plt Count 203 Lymph % (Auto) 19.5 [place] % (Auto) 6.5 Eos % (Auto) 0.9 Baso % (Auto) 1.0 Lymph # (Auto) 2.9 [place] # (Auto) 1.0 H Eos # (Auto) 0.1 Baso # (Auto) 0.2 H Seg Neutrophils % 72.1 H Seg Neutrophils # 10.9 H PT 13.8 INR 0.96 APTT 27.5 Sodium 140 Potassium 3.9 Chloride 104.7 Carbon Dioxide 19 L Anion Gap 20 BUN 17 Creatinine 1.9 H Estimated GFR 42 BUN/Creatinine Ratio 9 Glucose 128 H Calcium 9.2 Total Bilirubin 1.00 AST 19 ALT 15 Alkaline Phosphatase 71 Troponin T < 0.010 Total Protein 8.3 H Albumin 4.2 Albumin/Globulin Ratio 1.0 Lipase 46 - Radiology Data Radiology results: report reviewed (Right upper quadrant ultrasound), image reviewed (Right upper quadrant ultrasound) [facility] [address] [place] [address] Ultrasound Report Signed Patient: CHE BARRETT JR MR#: [id number] : 1950 Acct:[id number] Age/Sex: 70 / M ADM Date: 12/15/20 Loc: ED Attending Dr: Ordering Physician: SHAWN WETZEL MD Date of Service: 12/15/20 Procedure(s): US abdomen limited Accession Number(s): [id number] cc: SHAWN WETZEL MD ULTRASOUND ABDOMEN, LIMITED INDICATION / CLINICAL INFORMATION: Epigastric pain. COMPARISON: CT 12/12/2020 FINDINGS: PANCREAS: Not well seen due to overlying bowel gas. LIVER: The liver is echogenic and mildly enlarged measuring 16.3 cm. GALLBLADDER: There is cholelithiasis and mild wall thickening measuring 4 mm. Positive sonographic Heller sign. BILE DUCTS: No significant abnormality. Common bile duct measures 4 mm. FREE FLUID: None. ADDITIONAL FINDINGS: The right kidney contains multiple cysts, better evaluated on recent CT. IMPRESSION: 1. Cholelithiasis with mild wall thickening and positive sonographic Heller sign. Constellation of findings suggests acute cholecystitis. 2. Echogenic liver, which can be seen with hepatic steatosis. Mild hepatomegaly. Signer Name: Nicholas Wilson MD Signed: 12/15/2020 10:06 AM Workstation Name: [id number] Transcribed By: DB Dictated By: NICHOLAS WILSON MD Electronically Authenticated By: NICHOLAS WILSON MD Signed Date/Time: 12/15/20 1006 DD/ 1000 TD/TT: Print Cancel - Differential Diagnosis Cholecystitis, peptic ulcer disease, pancreatitis, biliary pancreatitis, AC Critical care attestation.: If time is entered above; I have spent that time in minutes in the direct care of this critically ill patient, excluding procedure time. ED Disposition Clinical Impression: Acute cholecystitis, Acute abdominal pain Disposition: ADMITTED INPATIENT Is pt being admited?: Yes Does the pt Need Aspirin: No Condition: Fair Referrals: PRIMARY CARE,MD [Primary Care Provider] - 3-5 Days Time of Disposition: 10:38 (Hospitalist called (Dr Cordova))
[2020-12-15 09:10] LABS: Basophils # (Auto) 0.2 K/mm3 (0.0-0.1); Eosinophils # (Auto) 0.1 K/mm3 (0.0-0.4); Eosinophils % (Auto) 0.9 % (0.0-4.3); Hematocrit 44.9 % (35.5-45.6); Hemoglobin 14.9 gm/dl (11.8-15.2); Lymphocytes # (Auto) 2.9 K/mm3 (1.2-5.4); Lymphocytes % (Auto) 19.5 % (13.4-35.0); Mean Corpuscular HGB Conc 33 % (32-34); Mean Corpuscular Volume 95 fl (84-94); Monocytes % (Auto) 6.5 % (0.0-7.3); Platelet Count 203 K/mm3 (140-440); Red Blood Count 4.73 M/mm3 (3.65-5.03); Red Cell Distribution Width 12.9 % (13.2-15.2)
[2020-12-15 09:20] LABS: INR 0.96 (0.87-1.13); Partial Thromboplastin Time 27.5 Sec. (24.2-36.6)
[2020-12-15 09:35] LABS: Alanine Aminotransferase 15 units/L (7-56); Albumin 4.2 g/dL (3.9-5); BUN/Creatinine Ratio 9; Blood Urea Nitrogen 17 mg/dL (9-20); Calcium 9.2 mg/dL (8.4-10.2); Hemolysis Index 1
--- NOTE | 2020-12-15 09:46 | XRay Report ---
CHEST 2 VIEWS INDICATION: Chest Pain. COMPARISON: 12/06/2018 FINDINGS: Support devices: None. Heart: Within normal limits. Lungs/Pleura: No acute air space or interstitial disease. No significant pleural effusion. IMPRESSION: No acute findings. Signer Name: Jamie Soliz MD Signed: 12/15/2020 9:41 AM Workstation Name: [id number]
--- NOTE | 2020-12-15 10:11 | Ultrasound Report ---
ULTRASOUND ABDOMEN, LIMITED INDICATION / CLINICAL INFORMATION: Epigastric pain. COMPARISON: CT 12/12/2020 FINDINGS: PANCREAS: Not well seen due to overlying bowel gas. LIVER: The liver is echogenic and mildly enlarged measuring 16.3 cm. GALLBLADDER: There is cholelithiasis and mild wall thickening measuring 4 mm. Positive sonographic Mu rphy sign. BILE DUCTS: No significant abnormality. Common bile duct measures 4 mm. FREE FLUID: None. ADDITIONAL FINDINGS: The right kidney contains multiple cysts, better evaluated on recent CT. IMPRESSION: 1. Cholelithiasis with mild wall thickening and positive sonographic Heller sign. Constellation of fi ndings suggests acute cholecystitis. 2. Echogenic liver, which can be seen with hepatic steatosis. Mild hepatomegaly. Signer Name: Brendan Wilson MD Signed: 12/15/2020 10:06 AM Workstation Name: [id number]
[2020-12-15] MEDS ORDERED: HYDROmorphone 1 MG/1 ML INJ IV ONE ×2 (10:17→16:29)
[2020-12-15] MEDS ORDERED: METOCLOPRAMIDE 10 MG/2 ML INJ IV ONE (10:29)
[2020-12-15] MEDS ORDERED: METOCLOPRAMIDE 10 MG/2 ML INJ ONE (10:30)
[2020-12-15] MEDS ORDERED: PIPERACIL/TAZOBACTA 4.5/NS 100 4.5 GM/100 ML VIAL IV ONE (10:37)
--- NOTE | 2020-12-15 11:14 | Electrocardiograph Report ---
[facility] Test Date: 2020-12-15 Test Time: 08:28:22 Pat Name: CHE BARRETT Department: Room: [facility] Gender: M Sports Umpire: DENNIS : 1950 Requested By: NENA ROMERO Order Number: [id number] Reading MD: John Cruz Measurements Intervals [place] Rate: 69 P: 0 NV: 180 QRS: -26 QRSD: 91 T: -75 QT: 392 QTc: 420 Interpretive Statements Sinus rhythm Compared to ECG 12/12/2020 08:13:32 Sinus bradycardia no longer present Electronically Signed On 12-15-2020 11:14:00 EDT by John Cruz
--- NOTE | 2020-12-15 11:20 | Consultation ---
History of Present Illness Consult date: 12/15/20 Reason for consult: abdominal pain - History of present illness History of present illness: 70 yo male who presented to the ED with increasing epigastric pain, nausea and vomiting. He was in the ED several days ago for similar complaints. He was diagnosed with chronic cholecystitis and was referred to my office. He came to my office on 12/13/20 and RUQ US was scheduled. Past History Past Medical History: GERD, hypertension Medications and Allergies Allergies Allergy/AdvReac Type Severity Reaction Status Date / Time ibuprofen [From Motrin] AdvReac Hives Verified 07/13/18 12:08 Home Medications Medication Instructions Recorded Confirmed Last Taken Type Cetirizine HCl 10 mg PO DAILY 06/01/20 12/12/20 06/09/20 21:00 History Valsartan 160 mg PO DAILY 06/01/20 12/12/20 1 Day Ago History ~12/11/20 oxyCODONE /ACETAMINOPHEN [Percocet 1 tab PO Q6HR PRN #30 tablet 06/10/20 12/12/20 Unknown Rx 5/325] Famotidine [Pepcid] 20 mg PO BID #20 tablet 12/12/20 Unknown Rx Ondansetron [Zofran Odt] 4 mg PO Q8HR #20 tab.rapdis 12/12/20 Unknown Rx levoFLOXacin [Levaquin] 750 mg PO QDAY #7 tablet 12/12/20 Unknown Rx traMADoL [Ultram 50 MG tab] 50 mg PO Q6HR PRN #15 tablet 12/12/20 Unknown Rx Review of Systems All systems: negative (none) Exam Vital Signs Temp Pulse Resp BP Pulse Ox 97.8 F 79 20 152/84 99 12/15/20 08:39 12/15/20 08:39 12/15/20 08:39 12/15/20 08:39 12/15/20 08:39 - General physical appearance Positive: well developed, well nourished, no distress - Eyes Positive: PERRL, normal occular movement - ENT Positive: normal pinna, normal nares, normal mucosa, no hearing loss, no congestion - Neck Positive: no masses, no bruits, trachea midline, no venous distension - Respiratory Positive: normal expansion, normal respiratory effort, clear to auscultation - Cardiovascular Rhythm: regular Heart Sounds: Present: S1 & S2. Absent: rub, click - Extremities Extremities: no ischemia, pulses symmetrical, No edema - Breasts Breasts: normal, no mass, no skin changes - Abdomen Abdomen: Present: soft, bowel sounds hypoactive (TTP in the epigastrium and RUQ without rebound or guarding.). Absent: distended Hernia: none - Genitourinary Male Genitourinary: normal Female Genitourinary: normal - Integumentary no rash, no growths, no abnormal pigmentation - Neurologic Neurologic: alert and oriented to time, place and person, motor strength and sensation are grossly intact - Musculoskeletal normal gait, normal posture - Psychiatric Psychiatric: appropriate mood/affect, intact judgment & insight Results - Labs 12/15/20 08:49 12/15/20 08:49 Abnormal lab results 12/15/20 12/15/20 Range/Units 08:49 08:49 WBC 15.1 H (4.5-11.0) K/mm3 MCV 95 H (84-94) fl RDW 12.9 L (13.2-15.2) % [place] # (Auto) 1.0 H (0.0-0.8) K/mm3 Baso # (Auto) 0.2 H (0.0-0.1) K/mm3 Seg Neutrophils % 72.1 H (40.0-70.0) % Seg Neutrophils # 10.9 H (1.8-7.7) K/mm3 Carbon Dioxide 19 L (22-30) mmol/L Creatinine 1.9 H (0.8-1.3) mg/dL Glucose 128 H (75-100) mg/dL Total Protein 8.3 H (6.3-8.2) g/dL Diabetes panel 12/15/20 Range/Units 08:49 Sodium 140 (137-145) mmol/L Potassium 3.9 (3.6-5.0) mmol/L Chloride 104.7 (98-107) mmol/L Carbon Dioxide 19 L (22-30) mmol/L BUN 17 (9-20) mg/dL Creatinine 1.9 H (0.8-1.3) mg/dL Glucose 128 H (75-100) mg/dL Calcium 9.2 (8.4-10.2) mg/dL AST 19 (5-40) units/L ALT 15 (7-56) units/L Alkaline Phosphatase 71 (35-129) units/L Total Protein 8.3 H (6.3-8.2) g/dL Albumin 4.2 (3.9-5) g/dL Calcium panel 12/15/20 Range/Units 08:49 Calcium 9.2 (8.4-10.2) mg/dL Albumin 4.2 (3.9-5) g/dL Pituitary panel 12/15/20 Range/Units 08:49 Sodium 140 (137-145) mmol/L Potassium 3.9 (3.6-5.0) mmol/L Chloride 104.7 (98-107) mmol/L Carbon Dioxide 19 L (22-30) mmol/L BUN 17 (9-20) mg/dL Creatinine 1.9 H (0.8-1.3) mg/dL Glucose 128 H (75-100) mg/dL Calcium 9.2 (8.4-10.2) mg/dL Adrenal panel 12/15/20 Range/Units 08:49 Sodium 140 (137-145) mmol/L Potassium 3.9 (3.6-5.0) mmol/L Chloride 104.7 (98-107) mmol/L Carbon Dioxide 19 L (22-30) mmol/L BUN 17 (9-20) mg/dL Creatinine 1.9 H (0.8-1.3) mg/dL Glucose 128 H (75-100) mg/dL Calcium 9.2 (8.4-10.2) mg/dL Total Bilirubin 1.00 (0.1-1.2) mg/dL AST 19 (5-40) units/L ALT 15 (7-56) units/L Alkaline Phosphatase 71 (35-129) units/L Total Protein 8.3 H (6.3-8.2) g/dL Albumin 4.2 (3.9-5) g/dL - Imaging US - abdomen: report reviewed Assessment and Plan - Patient Problems (1) Acute cholecystitis Current Visit: Yes Status: Acute Plan to address problem: 1) NPO 2) IV Zosyn 3) Lap debra at 2:30 pm tomorrow
--- NOTE | 2020-12-15 14:31 | History and Physical Report ---
History of Present Illness Date of examination: 12/15/20 Date of admission: 12/15/20 10:39 Chief complaint: Abdominal pain with nausea and vomiting History of present illness: This 70-year-old male with significant with PMH of HTN, CKD stage III, and GERD was only presented to ED with upper abdominal pain, nausea and vomiting on 12/12/2020 and work-up at that time showed cholelithiasis with possible acute cholecystitis on CT imaging. His symptoms resolved in the ED and patient was discharged for outpatient follow-up with Dr. Lanier, general surgeon. Subsequ ently patient was seen by Dr. Lanier in his office and scheduled for further work-up pending possible surgery. However, his symptoms recurred at 4 AM today with epigastric pain nausea and multiple vomitings. Patient denied fever chills. is reconsulted and patient is rescheduled for surgery tomorrow. Currently, right upper quadrant/epigastric pain is persistent during the intermittently as well as Zofran with patient obtaining good relief. Review of systems: 13 systems reviewed and only the pertinent data stated ER. No fever or chills. No chest pains or dyspnea. No palpitations or syncopal episodes. No diarrhea. Last BM was 2 days ago. No acute urinary symptoms. No history of chronic lung disease CAD. No history of diabetes. No acute urinary symptoms. No cough. Past medical history: Hypertension, CKD stage III, overweight, GERD. Past surgical history: Right rotator cuff surgery repair about 2 months ago. Social history: Is retired. Lives alone. Is a non-smoker. Denies alcohol abuse. Family history: Mother had colon cancer and father had diabetes. No family stop CAD. Past History Past Medical History: GERD, hypertension Medications and Allergies Allergies Allergy/AdvReac Type Severity Reaction Status Date / Time ibuprofen [From Motrin] AdvReac Hives Verified 07/13/18 12:08 Home Medications Medication Instructions Recorded Confirmed Last Taken Type Valsartan 160 mg PO DAILY 06/01/20 12/12/20 1 Day Ago History ~12/11/20 Omeprazole 40 mg PO DAILY 12/15/20 12/15/20 Unknown History Exam - Constitutional Vitals: Temp Pulse Resp BP Pulse Ox 97.8 F 75 23 159/97 97 12/15/20 08:39 12/15/20 14:00 12/15/20 14:00 12/15/20 14:00 12/15/20 14:00 General appearance: Present: no acute distress, well-nourished - EENT Eyes: Present: PERRL, EOM intact ENT: hearing intact, clear oral mucosa - Neck Neck: Present: supple. Absent: masses or JVD - Respiratory Respiratory effort: normal Respiratory: bilateral: CTA - Cardiovascular Rhythm: regular - Extremities Extremities: No edema - Abdominal General gastrointestinal: Present: soft, non-distended, normal bowel sounds, other (Mild to moderate tenderness in RUQ without rigidity or masses. No peritoneal signs.) Male genitourinary: Present: deferred - Rectal Rectal Exam: deferred - Integumentary Integumentary: Absent: rash - Musculoskeletal Musculoskeletal: strength equal bilaterally - Psychiatric Psychiatric: appropriate mood/affect - Neurologic Neurologic: no focal deficits HEART Score - HEART Score Troponin: Troponin T < 0.010 ng/mL (0.00-0.029) 12/15/20 08:49 Results - Labs CBC & Chem 7: 12/15/20 08:49 12/15/20 08:49 Labs: Laboratory Last Values WBC 15.1 K/mm3 (4.5-11.0) H 12/15/20 08:49 RBC 4.73 M/mm3 (3.65-5.03) 12/15/20 08:49 Hgb 14.9 gm/dl (11.8-15.2) 12/15/20 08:49 Hct 44.9 % (35.5-45.6) 12/15/20 08:49 MCV 95 fl (84-94) H 12/15/20 08:49 MCH 32 pg (28-32) 12/15/20 08:49 MCHC 33 % (32-34) 12/15/20 08:49 RDW 12.9 % (13.2-15.2) L 12/15/20 08:49 Plt Count 203 K/mm3 (140-440) 12/15/20 08:49 Lymph % (Auto) 19.5 % (13.4-35.0) 12/15/20 08:49 [place] % (Auto) 6.5 % (0.0-7.3) 12/15/20 08:49 Eos % (Auto) 0.9 % (0.0-4.3) 12/15/20 08:49 Baso % (Auto) 1.0 % (0.0-1.8) 12/15/20 08:49 Lymph # (Auto) 2.9 K/mm3 (1.2-5.4) 12/15/20 08:49 [place] # (Auto) 1.0 K/mm3 (0.0-0.8) H 12/15/20 08:49 Eos # (Auto) 0.1 K/mm3 (0.0-0.4) 12/15/20 08:49 Baso # (Auto) 0.2 K/mm3 (0.0-0.1) H 12/15/20 08:49 Seg Neutrophils % 72.1 % (40.0-70.0) H 12/15/20 08:49 Seg Neutrophils # 10.9 K/mm3 (1.8-7.7) H 12/15/20 08:49 PT 13.8 Sec. (12.2-14.9) 12/15/20 08:49 INR 0.96 (0.87-1.13) 12/15/20 08:49 APTT 27.5 Sec. (24.2-36.6) 12/15/20 08:49 Sodium 140 mmol/L (137-145) 12/15/20 08:49 Potassium 3.9 mmol/L (3.6-5.0) 12/15/20 08:49 Chloride 104.7 mmol/L (98-107) 12/15/20 08:49 Carbon Dioxide 19 mmol/L (22-30) L 12/15/20 08:49 Anion Gap 20 mmol/L 12/15/20 08:49 BUN 17 mg/dL (9-20) 12/15/20 08:49 Creatinine 1.9 mg/dL (0.8-1.3) H 12/15/20 08:49 Estimated GFR 42 ml/min 12/15/20 08:49 BUN/Creatinine Ratio 9 % 12/15/20 08:49 Glucose 128 mg/dL (75-100) H 12/15/20 08:49 Calcium 9.2 mg/dL (8.4-10.2) 12/15/20 08:49 Total Bilirubin 1.00 mg/dL (0.1-1.2) 12/15/20 08:49 AST 19 units/L (5-40) 12/15/20 08:49 ALT 15 units/L (7-56) 12/15/20 08:49 Alkaline Phosphatase 71 units/L (35-129) 12/15/20 08:49 Troponin T < 0.010 ng/mL (0.00-0.029) 12/15/20 08:49 Total Protein 8.3 g/dL (6.3-8.2) H 12/15/20 08:49 Albumin 4.2 g/dL (3.9-5) 12/15/20 08:49 Albumin/Globulin Ratio 1.0 % 12/15/20 08:49 Lipase 46 units/L (13-60) 12/15/20 08:49 Assessment and Plan Assessment and plan: Assessment: Recurrent acute/subacute cholecystitis with cholelithiasis with leukocytosis but currently afebrile Normal LFTs and lipase, no evidence of pancreatitis CKD stage III, with baseline renal function, baseline creatinine 1.8-2.1. Hemodynamically stable. Overnight Hypertension History of GERD Plan: EKG is unremarkable and patient has no acute cardiac symptoms No history history of cardiopulmonary disease. Non-smoker. No history of diabetes Medically cleared for laparoscopic cholecystectomy Dr. Lanier, general surgery consulted and patient is tentatively scheduled for surgery tomorrow Continue n.p.o. with IV hydration. Continue Zosyn started in ED since patient has leukocytosis, no evidence of systemic sepsis Continue Dilaudid and Zofran as needed DVT prophylaxis: Lovenox 40 mg x 1 dose, subcu GI prophylaxis: Protonix Discussed with the ER physician, nursing staff and the patient. Advance Directives: Yes VTE prophylaxis?: Chemical Plan of care discussed with patient/family: Yes
[2020-12-15 14:33] LABS: Bilirubin,Urine NEG (Negative); Blood,Urine SM (Negative); Color,Urine Yellow (Yellow); Mucus,Urine FEW /HPF; Urobilinogen,Urine < 2.0 mg/dL (<2.0)
[2020-12-15] MEDS ORDERED: PIPERACIL/TAZOBACTA 4.5/NS 100 4.5 GM/100 ML VIAL IV SCH (16:00)
[2020-12-15] MEDS ORDERED: ENOXAPARIN 40 MG/0.4 ML INJ SUB-Q ONE (17:00)
[2020-12-15] MEDS: ONDANSETRON 4 MG/2 ML INJ IV PRN (20:14)
[2020-12-15] MEDS: PIPERACIL/TAZOBACTA 4.5/NS 100 4.5 GM/100 ML VIAL IV SCH (20:15)
[2020-12-15] MEDS: HYDROmorphone 1 MG/1 ML INJ IV PRN (20:15)
[2020-12-15] MEDS: PANTOPRAZOLE 40 MG INJ IV SCH (22:00)
[2020-12-15] MEDS: D5W/0.45% NACL/KCL 10 MEQ 10 MEQ/1,000 ML BAG IV SCH (23:24)
[2020-12-16] MEDS: HYDROmorphone 1 MG/1 ML INJ IV PRN ×5 (01:24→23:07)
[2020-12-16] MEDS: PIPERACIL/TAZOBACTA 4.5/NS 100 4.5 GM/100 ML VIAL IV SCH ×3 (03:49→23:06)
[2020-12-16] MEDS ORDERED: hydrALAZINE 20 MG/1 ML INJ IV PRN (04:16)
[2020-12-16] MEDS: ONDANSETRON 4 MG/2 ML INJ IV PRN (04:29)
[2020-12-16] MEDS ORDERED: cloNIDine TTS 0.2 MG/24 HR PATCH TD SCH (05:00)
[2020-12-16] MEDS: PANTOPRAZOLE 40 MG INJ IV SCH ×2 (09:14→23:06)
[2020-12-16 11:03] LABS: Calcium 8.6 mg/dL (8.4-10.2)
--- NOTE | 2020-12-16 11:57 | Electrocardiograph Report ---
[facility] Test Date: 2020-12-16 Test Time: 07:32:06 Pat Name: CHE BARRETT Department: Room: A362 1 Gender: M Classification Inspector: DAXA : 1950 Requested By: NENA ROMERO Order Number: [id number] Reading MD: Jamir Castellano Measurements Intervals [place] Rate: 91 P: 13 [place]: 158 QRS: -9 QRSD: 85 T: 47 QT: 356 QTc: 438 Interpretive Statements Sinus rhythm Supraventricular bigeminy Compared to ECG 12/15/2020 08:28:22 Atrial premature complex(es) now present Electronically Signed On 12-16-2020 11:57:34 EDT by Jamir Castellano
[2020-12-16] MEDS: D5W/0.45% NACL/KCL 10 MEQ 10 MEQ/1,000 ML BAG IV SCH (13:25)
[2020-12-16] MEDS ORDERED: BUPIVACAINE/PF (0.25%) 2.5 MG/ML 30 ML VIAL INFILTRATI ONE ×2 (15:08→17:35)
--- NOTE | 2020-12-16 15:25 | Anesthesia Consultation ---
Anesthesia Consult and Med Hx Date of service: 12/16/20 - Airway Anesthetic Teeth Evaluation: Dentures ROM Head & Neck: Adequate Mental/Hyoid Distance: Adequate Mallampati Class: Class II Intubation Access Assessment: Probably Good - Pulmonary Exam CTA: Yes - Cardiac Exam Cardiac Exam: RRR - Pre-Operative Health Status ASA Pre-Surgery Classification: ASA3 Proposed Anesthetic Plan: General - Pulmonary Hx Smoking: No Hx Asthma: No Hx Respiratory Symptoms: No COPD: Yes Hx Pneumonia: No Hx Sleep Apnea: Yes (C-PAP USER) - Cardiovascular System Hx Hypertension: Yes Hx Coronary Artery Disease: No Hx Heart Attack/AMI: No Hx Angina: No Hx Percutaneous Transluminal Coronary Angioplasty (PTCA): No Hx Pacemaker: No Hx Internal Defibrillator: No Hx Valvular Heart Disease: No Hx Heart Murmur: No Hx Peripheral Vascular Disease: No - Central Nervous System Hx Seizures: No CVA: No Hx Psychiatric Problems: No - Gastrointestinal Hx Ulcer: No Hx Gastroesophageal Reflux Disease: Yes (Took medication this morning.) - Endocrine Hx Renal Disease: Yes (CKD (Cr 1.9)) Hx End Stage Renal Disease: No Hx Cirrhosis: No Hx Liver Disease: No Hx Insulin Dependent Diabetes: No Hx Non-Insulin Dependent Diabetes: No Hx Thyroid Disease: No Hx Hypothyroidism: No Hx Hyperthyroidism: No - Hematic Hx Anemia: No Hx Sickle Cell Disease: No - Other Systems Hx Obesity: Yes (BMI 36) - Additional Comments Anesthesia Medical History Comments: Rotator cuff repair 2 months ago. No GAC, No FHAC.
--- NOTE | 2020-12-16 15:25 | Anesthesia Day of Surgery ---
Anesthesia Day of Surgery - Day of Surgery Patient Examined: Yes Patient H&P Reviewed: Yes Patient is NPO: Yes Beta Blockers: No Pablo's Test: N/A
[2020-12-16] MEDS ORDERED: ROCURONIUM 50 MG/5 ML INJ IV ONE ×2 (16:49→18:02)
[2020-12-16] MEDS ORDERED: LIDOCAINE MPF (2%) 20 MG/1 ML VIAL 5 ML ONE (16:49)
[2020-12-16] MEDS ORDERED: fentaNYL 100 MCG/2 ML INJ ONE (16:50)
[2020-12-16] MEDS ORDERED: propofoL 200 MG/20 ML VIAL IV ONE (16:50)
[2020-12-16] MEDS ORDERED: PHENYLEPHRINE/NS 1,000 MCG/10 ML SYRINGE (OR USE) IV ONE (17:20)
[2020-12-16] MEDS ORDERED: dexAMETHasone 20 MG/5 ML VIAL ONE (17:28)
[2020-12-16] MEDS ORDERED: LACTATED RINGERS 1,000 ML ONE (17:28)
[2020-12-16] MEDS ORDERED: ONDANSETRON 4 MG/2 ML INJ ONE (17:28)
[2020-12-16] MEDS ORDERED: SODIUM CHLORIDE 0.9% IRR 1,500 ML BOTTLE IR ONE (17:36)
[2020-12-16] MEDS ORDERED: SODIUM CHLORIDE 0.9% IRRIG SOLN 2000 ML IR ONE (17:55)
[2020-12-16] MEDS ORDERED: PHENYLEPHRINE 10 MG/1 ML INJ SDV ONE (18:02)
[2020-12-16] MEDS ORDERED: ONDANSETRON 4 MG/2 ML INJ IV PRN (18:02)
[2020-12-16] MEDS ORDERED: HYDROmorphone 1 MG/1 ML INJ IV PRN ×2 (18:02)
[2020-12-16] MEDS ORDERED: SODIUM CHLORIDE 0.9% 100 ML ONE (18:44)
[2020-12-16] MEDS ORDERED: GLYCOPYRROLATE 0.4 MG/2 ML INJ ONE (18:45)
[2020-12-16] MEDS ORDERED: NEOSTIGMINE 10MG/10 ML INJ MDV ONE (18:45)
[2020-12-16] MEDS ORDERED: HYDROmorphone 1 MG/1 ML INJ ONE (19:02)
--- NOTE | 2020-12-16 19:32 | Procedure Note ---
Date of procedure: 12/16/20 Pre-op diagnosis: Acute cholecystitis Post-op diagnosis: same Procedure: Laparoscopic cholecystectomy Description of procedure: Pt was placed supine on the OR table. GETA was administered. Abdomen was prepped and draped. Proposed trocar sites were infi ltrated with 8 ml of 0.5% Marcaine. A small infraumbilical incision was made and the peritoneal cavity carefully entered. A Kamila port was inserted into the peritoneal cavity and pneumoperitoneum established. An 11 mm sub-xiphoid, 5 mm RUQ and 5 mm right lateral ports were inserted into the peritoneal cavity under direct vision without incident. Pt was placed feet and left side down. Gallbladder was covered with adhesions. Fundus of the gallbladder was exposed with careful blunt dissection. Fundus was grasped and was retracted cephalad. Adhesions were taken down with blunt dissection. Approximately 50% of the gallbladder was gangrenous. The neck of the gallbladder, cystic duct and artery were skeletonized and the critical view of safety obtained. Cystic duct was milked toward the gallbladder. Cystic duct and artery were doubly clipped and divided. The gallbladder was then dissected off of it's hepatic fossa with blunt and Bovie dissection. Gallbladder was placed in an endobag and the endobag removed via the umbilical fascial defect. A 10 mm GERALDINE drain was then placed in the peritoneal cavity and the drain positioned in the sub-hepatic space. The drain was brought out the right lateral port site and was secured to the skin with a single suture of 3-0 Nylon. The other upper abdominal ports were removed and were found to be hemostatic under low pressure. The Kamila port was removed and the pneumoperitoneum released. The infraumbilical fascial defect was closed with 3 interrupted sutures of 0-Vicryl. The 3 remaining incisions were approximated in their mid-portions with single sutures of 4-0 Nylon. One quarter inch Iodoform wicking was then placed on either side of the 4-0 Nylon sutures. Incisions and drain exit site were dressed with dry 4 X 4's which was secured with Tegaderm dressings. Pt tolerated the procedure well and was extubated in the OR. Pt was then taken to PACU in stable condition. Findings: Gallbladder was gangrenous. Anesthesia: GETA Surgeon: SERENA GRAY Estimated blood loss: 50-100ml Pathology: list (Gallbladder and stones) Specimen disposition: to lab Condition: stable Disposition: PACU
--- NOTE | 2020-12-16 20:08 | Progress Note ---
Assessment and Plan Assessment and plan: Assessment: Recurrent acute/subacute cholecystitis with cholelithiasis with leukocytosis but currently afebrile Normal LFTs and lipase, no evidence of pancreatitis CKD stage III, with baseline renal function, baseline creatinine 1.8-2.1. Hemodynamically stable. Overnight Hypertension History of GERD Plan: EKG is unremarkable and patient has no acute cardiac symptoms No history history of cardiopulmonary disease. Non-smoker. No history of diabetes Medically cleared for laparoscopic cholecystectomy scheduled for today Dr. Lanier, general surgery consulted and following Continue n.p.o. with IV hydration until surgery Continue Zosyn started in ED since patient has fever and leukocytosis, no ev idence of systemic sepsis Continue Dilaudid and Zofran as needed DVT prophylaxis: Lovenox 40 mg x 1 dose, subcu yesterday, SCDs GI prophylaxis: Protonix Discussed with the patient History Interval history: Patient remains n.p.o. pending surgery today. Pain in her right upper quadrant is persistent but controlled with the Dilaudid. Has low-grade fever. Vital signs stable. Has mild nausea. No BMs or diarrhea. Hospitalist Physical - Constitutional Vitals: Temp Pulse Resp BP Pulse Ox 98.5 F 85 20 120/62 96 12/16/20 19:25 12/16/20 19:55 12/16/20 19:55 12/16/20 19:55 12/16/20 19:55 General appearance: Present: no acute distress, well-nourished - EENT Eyes: Present: PERRL ENT: clear oral mucosa - Neck Neck: Present: supple - Respiratory Respiratory effort: normal - Cardiovascular Rhythm: regular - Extremities Extremities: No edema - Abdominal General gastrointestinal: soft, tender (In the RUQ without peritoneal signs), normal bowel sounds - Integumentary Integumentary: Absent: rash - Psychiatric Psychiatric: appropriate mood/affect - Neurologic Neurologic: no focal deficits HEART Score - HEART Score Troponin: Troponin T < 0.010 ng/mL (0.00-0.029) 12/15/20 15:32 Results - Labs CBC & Chem 7: 12/17/20 04:00 12/17/20 04:00 Labs: Laboratory Last Values WBC 15.1 K/mm3 (4.5-11.0) H 12/15/20 08:49 RBC 4.73 M/mm3 (3.65-5.03) 12/15/20 08:49 Hgb 14.9 gm/dl (11.8-15.2) 12/15/20 08:49 Hct 44.9 % (35.5-45.6) 12/15/20 08:49 MCV 95 fl (84-94) H 12/15/20 08:49 MCH 32 pg (28-32) 12/15/20 08:49 MCHC 33 % (32-34) 12/15/20 08:49 RDW 12.9 % (13.2-15.2) L 12/15/20 08:49 Plt Count 203 K/mm3 (140-440) 12/15/20 08:49 Lymph % (Auto) 19.5 % (13.4-35.0) 12/15/20 08:49 [place] % (Auto) 6.5 % (0.0-7.3) 12/15/20 08:49 Eos % (Auto) 0.9 % (0.0-4.3) 12/15/20 08:49 Baso % (Auto) 1.0 % (0.0-1.8) 12/15/20 08:49 Lymph # (Auto) 2.9 K/mm3 (1.2-5.4) 12/15/20 08:49 [place] # (Auto) 1.0 K/mm3 (0.0-0.8) H 12/15/20 08:49 Eos # (Auto) 0.1 K/mm3 (0.0-0.4) 12/15/20 08:49 Baso # (Auto) 0.2 K/mm3 (0.0-0.1) H 12/15/20 08:49 Seg Neutrophils % 72.1 % (40.0-70.0) H 12/15/20 08:49 Seg Neutrophils # 10.9 K/mm3 (1.8-7.7) H 12/15/20 08:49 PT 13.8 Sec. (12.2-14.9) 12/15/20 08:49 INR 0.96 (0.87-1.13) 12/15/20 08:49 APTT 27.5 Sec. (24.2-36.6) 12/15/20 08:49 Sodium 137 mmol/L (137-145) 12/16/20 10:24 Potassium 4.5 mmol/L (3.6-5.0) 12/16/20 10:24 Chloride 103.8 mmol/L (98-107) 12/16/20 10:24 Carbon Dioxide 19 mmol/L (22-30) L 12/16/20 10:24 Anion Gap 19 mmol/L 12/16/20 10:24 BUN 21 mg/dL (9-20) H 12/16/20 10:24 Creatinine 2.4 mg/dL (0.8-1.3) H 12/16/20 10:24 Estimated GFR 32 ml/min 12/16/20 10:24 BUN/Creatinine Ratio 9 % 12/16/20 10:24 Glucose 127 mg/dL (75-100) H 12/16/20 10:24 Calcium 8.6 mg/dL (8.4-10.2) 12/16/20 10:24 Total Bilirubin 1.00 mg/dL (0.1-1.2) 12/15/20 08:49 AST 19 units/L (5-40) 12/15/20 08:49 ALT 15 units/L (7-56) 12/15/20 08:49 Alkaline Phosphatase 71 units/L (35-129) 12/15/20 08:49 Troponin T < 0.010 ng/mL (0.00-0.029) 12/15/20 15:32 Total Protein 8.3 g/dL (6.3-8.2) H 12/15/20 08:49 Albumin 4.2 g/dL (3.9-5) 12/15/20 08:49 Albumin/Globulin Ratio 1.0 % 12/15/20 08:49 Lipase 46 units/L (13-60) 12/15/20 08:49 Urine Color Yellow (Yellow) 12/15/20 Unknown Urine Turbidity Clear (Clear) 12/15/20 Unknown Urine pH 5.0 (5.0-7.0) 12/15/20 Unknown Ur Specific [place] 1.018 (1.003-1.030) 12/15/20 Unknown Urine Protein 30 mg/dl mg/dL (Negative) 12/15/20 Unknown Urine Glucose (UA) Neg mg/dL (Negative) 12/15/20 Unknown Urine Ketones 20 mg/dL (Negative) 12/15/20 Unknown Urine Blood Sm (Negative) 12/15/20 Unknown Urine Nitrite Neg (Negative) 12/15/20 Unknown Urine Bilirubin Neg (Negative) 12/15/20 Unknown Urine Urobilinogen < 2.0 mg/dL (<2.0) 12/15/20 Unknown Ur Leukocyte Esterase Neg (Negative) 12/15/20 Unknown Urine WBC (Auto) 1.0 /HPF (0.0-6.0) 12/15/20 Unknown Urine RBC (Auto) 2.0 /HPF (0.0-6.0) 12/15/20 Unknown U Epithel Cells (Auto) 1.0 /HPF (0-13.0) 12/15/20 Unknown Urine Mucus Few /HPF 12/15/20 Unknown Coronavirus (PCR) Negative (Negative) 12/15/20 11:10 Santos/IV: Voiding Method Urinal Active Medications - Current Medications Current Medications: Generic Name Dose Route Start Last Admin Trade Name Freq PRN Reason Stop Dose Admin Clonidine HCl 0.2 mg 12/16/20 05:00 12/16/20 07:26 Clonidine Tts 0.2 Mg/24 Hr Patch TD Not Given Th [facility] Hydralazine HCl 10 mg 12/16/20 04:16 Hydralazine 20 Mg/1 Ml Inj IV Q6HR PRN SBP above 160 Hydromorphone HCl 0.5 mg 12/15/20 17:00 12/16/20 12:44 Hydromorphone 1 Mg/1 Ml Inj IV 0.5 mg Q4H PRN Administration Pain , Severe (7-10) Hydromorphone HCl 0.25 mg 12/16/20 18:02 Hydromorphone 1 Mg/1 Ml Inj IV Q10MIN PRN Pain, Moderate (4-6) Hydromorphone HCl 0.5 mg 12/16/20 18:02 Hydromorphone 1 Mg/1 Ml Inj IV Q10MIN PRN Pain , Severe (7-10) Piperacillin Sod/Tazobactam Sod 4.5 gm in 100 mls @ 200 mls/hr 12/15/20 20:00 12/16/20 12:00 Zosyn/Ns 4.5gm/100ml IV 200 mls/hr Q8H RENETTA Administration Protocol Potassium Chloride/Dextrose/Sod Cl 10 meq in 1,000 mls @ 75 mls/hr 12/15/20 17:00 12/16/20 13:25 D5w/0.45% Nacl/Kcl 10 Meq IV 75 mls/hr DIRECT RENETTA Administration Ondansetron HCl 4 mg 12/15/20 14:34 12/16/20 04:29 Ondansetron 4 Mg/2 Ml Inj IV 4 mg Q6H PRN Administration Nausea And Vomiting Ondansetron HCl 4 mg 12/16/20 18:02 Ondansetron 4 Mg/2 Ml Inj IV ONCE PRN Nausea And Vomiting Pantoprazole Sodium 40 mg 12/15/20 22:00 12/16/20 09:14 Pantoprazole 40 Mg Inj IV 40 mg BID RENETTA Administration
--- NOTE | 2020-12-16 23:48 | Post Anesthesia Evaluation ---
- Post Anesthesia Evaluation Patient Participated: Yes Airway Patent: Yes Stable Respiratory Function: Yes Nausea/Vomiting: No Temp > 96.8F: Yes Pain Manageable: Yes Adequeate Hydration: Yes Anesthesia Complications: No Block Receding Appropriately: Not Applicable Patient on Ventilator: No
[2020-12-17] MEDS: PIPERACIL/TAZOBACTA 4.5/NS 100 4.5 GM/100 ML VIAL IV SCH (04:09)
[2020-12-17] MEDS: HYDROmorphone 1 MG/1 ML INJ IV PRN ×3 (04:09→18:00)
[2020-12-17 06:19] LABS: Basophils % (Auto) 0.1 % (0.0-1.8); Hematocrit 39.5 % (35.5-45.6); Hemoglobin 12.8 gm/dl (11.8-15.2); Lymphocytes # (Auto) 1.8 K/mm3 (1.2-5.4); Lymphocytes % (Auto) 9.1 % (13.4-35.0); Mean Corpuscular HGB Conc 32 % (32-34); Mean Corpuscular Volume 95 fl (84-94); Monocytes # (Auto) 1.7 K/mm3 (0.0-0.8); Monocytes % (Auto) 8.7 % (0.0-7.3); Platelet Count 205 K/mm3 (140-440); Red Blood Count 4.15 M/mm3 (3.65-5.03); Red Cell Distribution Width 13.3 % (13.2-15.2)
[2020-12-17 06:30] LABS: Calcium 7.9 mg/dL (8.4-10.2)
[2020-12-17] MEDS: PANTOPRAZOLE 40 MG INJ IV SCH (09:07)
[2020-12-17] MEDS: D5W/0.45% NACL/KCL 10 MEQ 10 MEQ/1,000 ML BAG IV SCH (09:09)
[2020-12-17] MEDS ORDERED: SODIUM CHLORIDE 0.9% 1000 ML 1,000 ML IV ONE (11:00)
--- NOTE | 2020-12-17 12:20 | Progress Note ---
Assessment and Plan - Patient Problems (1) Acute cholecystitis Current Visit: Yes Status: Acute Plan to address problem: 1) CLD 2) Continue Zosyn 3) Ambulate in halls 4) IS 5) Dr. Fernández will round on pt tomorrow. Subjective Date of service: 12/17/20 Patient Reports: Positive: feels better, pain is less Objective Vital Signs - 12hr 12/17/20 12/17/20 02:06 05:48 Temperature 100.1 F H Pulse Rate 98 H Respiratory 18 20 Rate Blood Pressure 118/56 O2 Sat by Pulse 98 95 Oximetry - Abdomen soft, bowel sounds hypoactive, not distended (Appropriately TTP) - Labs 12/17/20 04:00 12/17/20 04:00 Diabetes panel 12/17/20 Range/Units 04:00 Sodium 139 (137-145) mmol/L Potassium 4.4 (3.6-5.0) mmol/L Chloride 103.3 (98-107) mmol/L Carbon Dioxide 22 (22-30) mmol/L BUN 31 H (9-20) mg/dL Creatinine 3.5 H (0.8-1.3) mg/dL Glucose 95 (75-100) mg/dL Calcium 7.9 L (8.4-10.2) mg/dL AST 52 H (5-40) units/L ALT 31 (7-56) units/L Alkaline Phosphatase 63 (35-129) units/L Total Protein 6.6 D (6.3-8.2) g/dL Albumin 3.0 L (3.9-5) g/dL Calcium panel 12/17/20 Range/Units 04:00 Calcium 7.9 L (8.4-10.2) mg/dL Albumin 3.0 L (3.9-5) g/dL Pituitary panel 12/17/20 Range/Units 04:00 Sodium 139 (137-145) mmol/L Potassium 4.4 (3.6-5.0) mmol/L Chloride 103.3 (98-107) mmol/L Carbon Dioxide 22 (22-30) mmol/L BUN 31 H (9-20) mg/dL Creatinine 3.5 H (0.8-1.3) mg/dL Glucose 95 (75-100) mg/dL Calcium 7.9 L (8.4-10.2) mg/dL Adrenal panel 12/17/20 Range/Units 04:00 Sodium 139 (137-145) mmol/L Potassium 4.4 (3.6-5.0) mmol/L Chloride 103.3 (98-107) mmol/L Carbon Dioxide 22 (22-30) mmol/L BUN 31 H (9-20) mg/dL Creatinine 3.5 H (0.8-1.3) mg/dL Glucose 95 (75-100) mg/dL Calcium 7.9 L (8.4-10.2) mg/dL Total Bilirubin 1.20 (0.1-1.2) mg/dL AST 52 H (5-40) units/L ALT 31 (7-56) units/L Alkaline Phosphatase 63 (35-129) units/L Total Protein 6.6 D (6.3-8.2) g/dL Albumin 3.0 L (3.9-5) g/dL
[2020-12-17] MEDS: SODIUM CHLORIDE 0.9% 1000 ML 1,000 ML IV SCH (13:26)
[2020-12-17] MEDS: PIPERACIL-TAZO 2.25 GM/50 ML 2.25 GM/50 ML BAG IV SCH (18:00)
--- NOTE | 2020-12-17 18:45 | Progress Note ---
Assessment and Plan Assessment and plan: Assessment: Recurrent acute/subacute cholecystitis with cholelithiasis with fever and leukocytosis Normal LFTs and lipase, no evidence of pancreatitis s/p laparoscopic cholecystectomy on 12/16/2020, found gallbladder gangrenous Leukocytosis worse postoperatively on Zosyn but hemodynamically stable LFTs normal postoperatively RENATO postoperatively History of CKD stage III, with baseline renal function, baseline creatinine 1.8- 2.1. Hypertension History of GERD Plan: Start on clear liquid diet today. Bowel sounds present. Continue Zosyn, blood cultures pending, monitor closely for sepsis Hydration with IV fluids and monitor urine output renal function closely DVT prophylaxis: Lovenox GI prophylaxis: Protonix Discussed with the patient History Interval history: Patient remains alert and oriented without acute distress. He does have some right upper quadrant pain postop. Gallbladder was noted to be gangrenous. No BM in 3 days or so. Has fever which appears to be trending down. Start on a clear liquid diet today. Creatinine is gone up acutely and given IV fluids. Hospitalist Physical - Constitutional Vitals: Temp Pulse Resp BP Pulse Ox 98.3 F 101 H 18 148/82 97 12/17/20 15:56 12/17/20 15:56 12/17/20 15:56 12/17/20 15:56 12/17/20 15:56 General appearance: Present: no acute distress, well-nourished - EENT Eyes: Present: PERRL ENT: clear oral mucosa - Neck Neck: Present: supple - Respiratory Respiratory effort: normal Respiratory: bilateral: CTA - Cardiovascular Rhythm: regular - Extremities Extremities: No edema - Abdominal General gastrointestinal: soft, tender (In RUQ, postop. Mildly distended. Bowel sounds present. No peritoneal signs.) - Psychiatric Psychiatric: appropriate mood/affect - Neurologic Neurologic: no focal deficits HEART Score - HEART Score Troponin: Troponin T < 0.010 ng/mL (0.00-0.029) 12/15/20 15:32 Results - Labs CBC & Chem 7: 12/17/20 04:00 12/17/20 04:00 Labs: Laboratory Last Values WBC 19.4 K/mm3 (4.5-11.0) H 12/17/20 04:00 RBC 4.15 M/mm3 (3.65-5.03) 12/17/20 04:00 Hgb 12.8 gm/dl (11.8-15.2) 12/17/20 04:00 Hct 39.5 % (35.5-45.6) 12/17/20 04:00 MCV 95 fl (84-94) H 12/17/20 04:00 MCH 31 pg (28-32) 12/17/20 04:00 MCHC 32 % (32-34) 12/17/20 04:00 RDW 13.3 % (13.2-15.2) 12/17/20 04:00 Plt Count 205 K/mm3 (140-440) 12/17/20 04:00 Lymph % (Auto) 9.1 % (13.4-35.0) L 12/17/20 04:00 [place] % (Auto) 8.7 % (0.0-7.3) H 12/17/20 04:00 Eos % (Auto) 0.0 % (0.0-4.3) 12/17/20 04:00 Baso % (Auto) 0.1 % (0.0-1.8) 12/17/20 04:00 Lymph # (Auto) 1.8 K/mm3 (1.2-5.4) 12/17/20 04:00 [place] # (Auto) 1.7 K/mm3 (0.0-0.8) H 12/17/20 04:00 Eos # (Auto) 0.0 K/mm3 (0.0-0.4) 12/17/20 04:00 Baso # (Auto) 0.0 K/mm3 (0.0-0.1) 12/17/20 04:00 Seg Neutrophils % 82.1 % (40.0-70.0) H 12/17/20 04:00 Seg Neutrophils # 15.9 K/mm3 (1.8-7.7) H 12/17/20 04:00 PT 13.8 Sec. (12.2-14.9) 12/15/20 08:49 INR 0.96 (0.87-1.13) 12/15/20 08:49 APTT 27.5 Sec. (24.2-36.6) 12/15/20 08:49 Sodium 139 mmol/L (137-145) 12/17/20 04:00 Potassium 4.4 mmol/L (3.6-5.0) 12/17/20 04:00 Chloride 103.3 mmol/L (98-107) 12/17/20 04:00 Carbon Dioxide 22 mmol/L (22-30) 12/17/20 04:00 Anion Gap 18 mmol/L 12/17/20 04:00 BUN 31 mg/dL (9-20) H 12/17/20 04:00 Creatinine 3.5 mg/dL (0.8-1.3) H 12/17/20 04:00 Estimated GFR 21 ml/min 12/17/20 04:00 BUN/Creatinine Ratio 9 % 12/17/20 04:00 Glucose 95 mg/dL (75-100) 12/17/20 04:00 Lactic Acid 1.40 mmol/L (0.7-2.0) 12/17/20 14:27 Calcium 7.9 mg/dL (8.4-10.2) L 12/17/20 04:00 Total Bilirubin 1.20 mg/dL (0.1-1.2) 12/17/20 04:00 AST 52 units/L (5-40) H 12/17/20 04:00 ALT 31 units/L (7-56) 12/17/20 04:00 Alkaline Phosphatase 63 units/L (35-129) 12/17/20 04:00 Troponin T < 0.010 ng/mL (0.00-0.029) 12/15/20 15:32 Total Protein 6.6 g/dL (6.3-8.2) D 12/17/20 04:00 Albumin 3.0 g/dL (3.9-5) L 12/17/20 04:00 Albumin/Globulin Ratio 0.8 % 12/17/20 04:00 Lipase 46 units/L (13-60) 12/15/20 08:49 Urine Color Yellow (Yellow) 12/15/20 Unknown Urine Turbidity Clear (Clear) 12/15/20 Unknown Urine pH 5.0 (5.0-7.0) 12/15/20 Unknown Ur Specific [place] 1.018 (1.003-1.030) 12/15/20 Unknown Urine Protein 30 mg/dl mg/dL (Negative) 12/15/20 Unknown Urine Glucose (UA) Neg mg/dL (Negative) 12/15/20 Unknown Urine Ketones 20 mg/dL (Negative) 12/15/20 Unknown Urine Blood Sm (Negative) 12/15/20 Unknown Urine Nitrite Neg (Negative) 12/15/20 Unknown Urine Bilirubin Neg (Negative) 12/15/20 Unknown Urine Urobilinogen < 2.0 mg/dL (<2.0) 12/15/20 Unknown Ur Leukocyte Esterase Neg (Negative) 12/15/20 Unknown Urine WBC (Auto) 1.0 /HPF (0.0-6.0) 12/15/20 Unknown Urine RBC (Auto) 2.0 /HPF (0.0-6.0) 12/15/20 Unknown U Epithel Cells (Auto) 1.0 /HPF (0-13.0) 12/15/20 Unknown Urine Mucus Few /HPF 12/15/20 Unknown Coronavirus (PCR) Negative (Negative) 12/15/20 11:10 Santos/IV: Voiding Method Urinal Active Medications - Current Medications Current Medications: Generic Name Dose Route Start Last Admin Trade Name Freq PRN Reason Stop Dose Admin Hydralazine HCl 10 mg 12/16/20 04:16 Hydralazine 20 Mg/1 Ml Inj IV Q6HR PRN SBP above 160 Hydromorphone HCl 0.5 mg 12/15/20 17:00 12/17/20 18:00 Hydromorphone 1 Mg/1 Ml Inj IV 0.5 mg Q4H PRN Administration Pain , Severe (7-10) Piperacillin Sod/Tazobactam Sod 2.25 gm in 50 mls @ 100 mls/hr 12/17/20 18:00 12/17/20 18:00 Zosyn/Ns 2.25 Gm/50ml IV 100 mls/hr Q6HR RENETTA Administration Sodium Chloride 1,000 mls @ 125 mls/hr 12/17/20 12:00 12/17/20 13:26 Nacl 0.9% 1000 Ml IV 125 mls/hr DIRECT RENETTA Administration Ondansetron HCl 4 mg 12/15/20 14:34 12/16/20 04:29 Ondansetron 4 Mg/2 Ml Inj IV 4 mg Q6H PRN Administration Nausea And Vomiting Pantoprazole Sodium 40 mg 12/15/20 22:00 12/17/20 09:07 Pantoprazole 40 Mg Inj IV 40 mg BID RENETTA Administration
[2020-12-18] MEDS: HYDROmorphone 1 MG/1 ML INJ IV PRN (00:23)
[2020-12-18] MEDS: PANTOPRAZOLE 40 MG INJ IV SCH ×3 (00:24→21:33)
[2020-12-18] MEDS: SODIUM CHLORIDE 0.9% 1000 ML 1,000 ML IV SCH ×3 (00:24→21:31)
[2020-12-18] MEDS: PIPERACIL-TAZO 2.25 GM/50 ML 2.25 GM/50 ML BAG IV SCH ×4 (00:25→17:47)
[2020-12-18 07:04] LABS: Basophils # (Auto) 0.1 K/mm3 (0.0-0.1); Basophils % (Auto) 0.4 % (0.0-1.8); Eosinophils # (Auto) 0.2 K/mm3 (0.0-0.4); Eosinophils % (Auto) 1.3 % (0.0-4.3); Hematocrit 35.3 % (35.5-45.6); Hemoglobin 11.8 gm/dl (11.8-15.2); Lymphocytes # (Auto) 2.1 K/mm3 (1.2-5.4); Lymphocytes % (Auto) 13.6 % (13.4-35.0); Mean Corpuscular HGB Conc 33 % (32-34); Mean Corpuscular Volume 96 fl (84-94); Monocytes # (Auto) 1.2 K/mm3 (0.0-0.8); Monocytes % (Auto) 7.8 % (0.0-7.3); Platelet Count 209 K/mm3 (140-440); Red Blood Count 3.66 M/mm3 (3.65-5.03); Red Cell Distribution Width 13.3 % (13.2-15.2)
[2020-12-18 07:48] LABS: Albumin 2.7 g/dL (3.9-5)
[2020-12-18] MEDS ORDERED: ENOXAPARIN 60 MG/0.6 ML INJ SUB-Q SCH (10:00)
[2020-12-18] MEDS: oxyCODONE /ACETAMINOPHEN 5-325MG TAB PO PRN (12:06)
[2020-12-18] MEDS: ENOXAPARIN 30 MG/0.3 ML INJ SUB-Q SCH (12:14)
--- NOTE | 2020-12-18 13:02 | Progress Note ---
Assessment and Plan 70-year-old male postop day #2 status post procedure Performed: Lap cholecystectomy for gangrenous cholecystitis. Patient afebrile and stable with leukocytosis trending down. Will advance to soft diet this evening and check CBC in a.m. Assuming patient continues to clinically improve may be able to discharge in next 24 to 48 hours. Subjective Date of service: 12/18/20 Narrative: No acute events overnight. Patient says that he is feeling better compared to yesterday and tolerating full liquids without any nausea vomiting. Patient says that he is ambulating without difficulty. Objective Vital Signs - 12hr 12/18/20 12/18/20 12/18/20 02:00 05:03 09:03 Temperature 99.3 F Pulse Rate 87 Respiratory 18 Rate Blood Pressure 122/58 O2 Sat by Pulse 96 98 98 Oximetry - General physical appearance well developed, no distress, moderate pain, obese - Respiratory normal expansion, normal respiratory effort - Abdomen soft, distended, not guarding, other (Dressing clean dry and intact, GERALDINE drain with serosanguineous fluid, appropriately tender to palpation) - Labs 12/18/20 05:10 12/18/20 05:10 Diabetes panel 12/18/20 Range/Units 05:10 Sodium 140 (137-145) mmol/L Potassium 3.9 (3.6-5.0) mmol/L Chloride 105.8 (98-107) mmol/L Carbon Dioxide 19 L (22-30) mmol/L BUN 39 H (9-20) mg/dL Creatinine 3.6 H (0.8-1.3) mg/dL Glucose 59 L (75-100) mg/dL Calcium 8.0 L (8.4-10.2) mg/dL AST 48 H (5-40) units/L ALT 29 (7-56) units/L Alkaline Phosphatase 57 (35-129) units/L Total Protein 6.4 (6.3-8.2) g/dL Albumin 2.7 L (3.9-5) g/dL Calcium panel 12/18/20 Range/Units 05:10 Calcium 8.0 L (8.4-10.2) mg/dL Albumin 2.7 L (3.9-5) g/dL Pituitary panel 12/18/20 Range/Units 05:10 Sodium 140 (137-145) mmol/L Potassium 3.9 (3.6-5.0) mmol/L Chloride 105.8 (98-107) mmol/L Carbon Dioxide 19 L (22-30) mmol/L BUN 39 H (9-20) mg/dL Creatinine 3.6 H (0.8-1.3) mg/dL Glucose 59 L (75-100) mg/dL Calcium 8.0 L (8.4-10.2) mg/dL Adrenal panel 12/18/20 Range/Units 05:10 Sodium 140 (137-145) mmol/L Potassium 3.9 (3.6-5.0) mmol/L Chloride 105.8 (98-107) mmol/L Carbon Dioxide 19 L (22-30) mmol/L BUN 39 H (9-20) mg/dL Creatinine 3.6 H (0.8-1.3) mg/dL Glucose 59 L (75-100) mg/dL Calcium 8.0 L (8.4-10.2) mg/dL Total Bilirubin 0.90 (0.1-1.2) mg/dL AST 48 H (5-40) units/L ALT 29 (7-56) units/L Alkaline Phosphatase 57 (35-129) units/L Total Protein 6.4 (6.3-8.2) g/dL Albumin 2.7 L (3.9-5) g/dL
--- NOTE | 2020-12-18 17:27 | Progress Note ---
Assessment and Plan Assessment and plan: Assessment: Recurrent acute/subacute cholecystitis with cholelithiasis with fever and leukocytosis Normal LFTs and lipase, no evidence of pancreatitis s/p laparoscopic cholecystectomy on 12/16/2020, found gallbladder gangrenous Leukocytosis worse and remains febrile postoperatively on Zosyn but hemody namically stable LFTs normal postoperatively RENATO postoperatively, 1.9-2.6 History of CKD stage III, with baseline renal function, baseline creatinine 1.8- 2.1. Borderline post residual urine volume, 340 mL by bladder scan with history of hesitancy Hypertension History of GERD Plan: Continue incentive spirometry for the fever and bibasilar Rales postoperatively Advancing diet to solids today. No BM but bowel sounds present. Continue Zosyn, blood cultures negative to date, monitor closely for sepsis Start Flomax for borderline urinary retention Hydration with IV fluids and monitor urine output renal function closely DVT prophylaxis: Lovenox GI prophylaxis: Protonix Discussed with the patient and the nursing staff History Interval history: T-max 101 but no fever currently. Patient reports doing progressively better. Only has mild RUQ pain. No nausea. No BM since surgery. Patient admits to some urinary hesitancy which is chronic but able to void. Bladder scan 340 mL. Creatinine worse 2.6. WBC improving, 15. Currently on liquid diet and Jell-O, to be advanced for supper. Hospitalist Physical - Constitutional Vitals: Temp Pulse Resp BP Pulse Ox 99.3 F 87 18 122/58 94 12/18/20 05:03 12/18/20 05:03 12/18/20 05:03 12/18/20 05:03 12/18/20 14:00 General appearance: Present: no acute distress, well-nourished, other (Obese) - EENT Eyes: Present: PERRL, EOM intact ENT: hearing intact, clear oral mucosa - Neck Neck: Present: supple - Respiratory Respiratory effort: normal Respiratory: bilateral: rales (No respiratory distress, bibasilar rales, postop) - Cardiovascular Rhythm: regular - Extremities Extremities: No edema - Abdominal General gastrointestinal: soft, other (Mild postoperative distention. Mild tenderness in the right quadrant. Bowel sounds present.) - Integumentary Integumentary: Absent: rash - Psychiatric Psychiatric: appropriate mood/affect - Neurologic Neurologic: no focal deficits HEART Score - HEART Score Troponin: Troponin T < 0.010 ng/mL (0.00-0.029) 12/15/20 15:32 Results - Labs CBC & Chem 7: 12/19/20 04:00 12/18/20 05:10 Labs: Laboratory Last Values WBC 15.4 K/mm3 (4.5-11.0) H 12/18/20 05:10 RBC 3.66 M/mm3 (3.65-5.03) 12/18/20 05:10 Hgb 11.8 gm/dl (11.8-15.2) 12/18/20 05:10 Hct 35.3 % (35.5-45.6) L 12/18/20 05:10 MCV 96 fl (84-94) H 12/18/20 05:10 MCH 32 pg (28-32) 12/18/20 05:10 MCHC 33 % (32-34) 12/18/20 05:10 RDW 13.3 % (13.2-15.2) 12/18/20 05:10 Plt Count 209 K/mm3 (140-440) 12/18/20 05:10 Lymph % (Auto) 13.6 % (13.4-35.0) 12/18/20 05:10 [place] % (Auto) 7.8 % (0.0-7.3) H 12/18/20 05:10 Eos % (Auto) 1.3 % (0.0-4.3) 12/18/20 05:10 Baso % (Auto) 0.4 % (0.0-1.8) 12/18/20 05:10 Lymph # (Auto) 2.1 K/mm3 (1.2-5.4) 12/18/20 05:10 [place] # (Auto) 1.2 K/mm3 (0.0-0.8) H 12/18/20 05:10 Eos # (Auto) 0.2 K/mm3 (0.0-0.4) 12/18/20 05:10 Baso # (Auto) 0.1 K/mm3 (0.0-0.1) 12/18/20 05:10 Seg Neutrophils % 76.9 % (40.0-70.0) H 12/18/20 05:10 Seg Neutrophils # 11.8 K/mm3 (1.8-7.7) H 12/18/20 05:10 PT 13.8 Sec. (12.2-14.9) 12/15/20 08:49 INR 0.96 (0.87-1.13) 12/15/20 08:49 APTT 27.5 Sec. (24.2-36.6) 12/15/20 08:49 Sodium 140 mmol/L (137-145) 12/18/20 05:10 Potassium 3.9 mmol/L (3.6-5.0) 12/18/20 05:10 Chloride 105.8 mmol/L (98-107) 12/18/20 05:10 Carbon Dioxide 19 mmol/L (22-30) L 12/18/20 05:10 Anion Gap 19 mmol/L 12/18/20 05:10 BUN 39 mg/dL (9-20) H 12/18/20 05:10 Creatinine 3.6 mg/dL (0.8-1.3) H 12/18/20 05:10 Estimated GFR 20 ml/min 12/18/20 05:10 BUN/Creatinine Ratio 11 % 12/18/20 05:10 Glucose 59 mg/dL (75-100) L 12/18/20 05:10 POC Glucose 72 mg/dL (70-105) 12/18/20 10:59 Lactic Acid 1.40 mmol/L (0.7-2.0) 12/17/20 14:27 Calcium 8.0 mg/dL (8.4-10.2) L 12/18/20 05:10 Total Bilirubin 0.90 mg/dL (0.1-1.2) 12/18/20 05:10 AST 48 units/L (5-40) H 12/18/20 05:10 ALT 29 units/L (7-56) 12/18/20 05:10 Alkaline Phosphatase 57 units/L (35-129) 12/18/20 05:10 Troponin T < 0.010 ng/mL (0.00-0.029) 12/15/20 15:32 Total Protein 6.4 g/dL (6.3-8.2) 12/18/20 05:10 Albumin 2.7 g/dL (3.9-5) L 12/18/20 05:10 Albumin/Globulin Ratio 0.7 % 12/18/20 05:10 Lipase 46 units/L (13-60) 12/15/20 08:49 Urine Color Yellow (Yellow) 12/15/20 Unknown Urine Turbidity Clear (Clear) 12/15/20 Unknown Urine pH 5.0 (5.0-7.0) 12/15/20 Unknown Ur Specific [place] 1.018 (1.003-1.030) 12/15/20 Unknown Urine Protein 30 mg/dl mg/dL (Negative) 12/15/20 Unknown Urine Glucose (UA) Neg mg/dL (Negative) 12/15/20 Unknown Urine Ketones 20 mg/dL (Negative) 12/15/20 Unknown Urine Blood Sm (Negative) 12/15/20 Unknown Urine Nitrite Neg (Negative) 12/15/20 Unknown Urine Bilirubin Neg (Negative) 12/15/20 Unknown Urine Urobilinogen < 2.0 mg/dL (<2.0) 12/15/20 Unknown Ur Leukocyte Esterase Neg (Negative) 12/15/20 Unknown Urine WBC (Auto) 1.0 /HPF (0.0-6.0) 12/15/20 Unknown Urine RBC (Auto) 2.0 /HPF (0.0-6.0) 12/15/20 Unknown U Epithel Cells (Auto) 1.0 /HPF (0-13.0) 12/15/20 Unknown Urine Mucus Few /HPF 12/15/20 Unknown Coronavirus (PCR) Negative (Negative) 12/15/20 11:10 Microbiology: Microbiology 12/17/20 14:40 Peripheral/Venous Blood Culture - Preliminary Culture in Progress 12/17/20 14:27 Peripheral/Venous Blood Culture - Preliminary Culture in Progress Santos/IV: Voiding Method Urinal Active Medications - Current Medications Current Medications: Generic Name Dose Route Start Last Admin Trade Name Freq PRN Reason Stop Dose Admin Enoxaparin Sodium 30 mg 12/18/20 10:00 12/18/20 12:14 Enoxaparin 30 Mg/0.3 Ml Inj SUB-Q 30 mg QDAY RENETTA Administration Protocol Hydralazine HCl 10 mg 12/16/20 04:16 Hydralazine 20 Mg/1 Ml Inj IV Q6HR PRN SBP above 160 Piperacillin Sod/Tazobactam Sod 2.25 gm in 50 mls @ 100 mls/hr 12/17/20 18:00 12/18/20 12:06 Zosyn/Ns 2.25 Gm/50ml IV 100 mls/hr Q6HR RENETTA Administration Sodium Chloride 1,000 mls @ 125 mls/hr 12/17/20 12:00 12/18/20 12:06 Nacl 0.9% 1000 Ml IV 125 mls/hr DIRECT RENETTA Administration Ondansetron HCl 4 mg 12/15/20 14:34 12/16/20 04:29 Ondansetron 4 Mg/2 Ml Inj IV 4 mg Q6H PRN Administration Nausea And Vomiting Oxycodone/Acetaminophen 1 tab 12/18/20 06:22 12/18/20 12:06 Oxycodone /Acetaminophen 5-325mg Tab PO 1 tab Q6H PRN Administration Pain, Moderate (4-6) Pantoprazole Sodium 40 mg 12/15/20 22:00 12/18/20 12:06 Pantoprazole 40 Mg Inj IV 40 mg BID RENETTA Administration
[2020-12-19] MEDS: PIPERACIL-TAZO 2.25 GM/50 ML 2.25 GM/50 ML BAG IV SCH ×5 (00:01→17:40)
[2020-12-19 05:10] LABS: Basophils % (Auto) 0.4 % (0.0-1.8); Eosinophils # (Auto) 0.4 K/mm3 (0.0-0.4); Hematocrit 36.3 % (35.5-45.6); Lymphocytes # (Auto) 1.5 K/mm3 (1.2-5.4); Lymphocytes % (Auto) 15.4 % (13.4-35.0); Mean Corpuscular HGB Conc 33 % (32-34); Mean Corpuscular Volume 96 fl (84-94); Monocytes # (Auto) 0.7 K/mm3 (0.0-0.8); Monocytes % (Auto) 7.1 % (0.0-7.3); Platelet Count 238 K/mm3 (140-440); Red Blood Count 3.79 M/mm3 (3.65-5.03); Red Cell Distribution Width 13.1 % (13.2-15.2)
[2020-12-19] MEDS: SODIUM CHLORIDE 0.9% 1000 ML 1,000 ML IV SCH ×2 (05:20→13:47)
[2020-12-19 07:11] LABS: Albumin 2.8 g/dL (3.9-5); Calcium 8.1 mg/dL (8.4-10.2)
[2020-12-19] MEDS: TAMSULOSIN 0.4 MG CAP PO SCH (07:45)
[2020-12-19] MEDS: PANTOPRAZOLE 40 MG INJ IV SCH (09:54)
[2020-12-19] MEDS: ENOXAPARIN 30 MG/0.3 ML INJ SUB-Q SCH (09:54)
[2020-12-19] MEDS: oxyCODONE /ACETAMINOPHEN 5-325MG TAB PO PRN (12:39)
--- NOTE | 2020-12-19 14:07 | Progress Note ---
Assessment and Plan 70-year-old male postop day #3 status post procedure Performed: Lap cholecystectomy for gangrenous cholecystitis. Patient afebrile and stable with leukocytosis resolved. From a general surgery perspective patient can be discharged. Patient to follow-up with Dr. Lanier in 1 week. Patient advised to advance diet as tolerated but avoid fatty or greasy foods. Subjective Date of service: 12/19/20 Narrative: No acute events overnight. Patient tolerating soft diet without any nausea, vomiting, increased abdominal pain. Objective Vital Signs - 12hr 12/19/20 12/19/20 12/19/20 05:21 08:01 10:17 Temperature 98.0 F Pulse Rate 68 Respiratory 16 Rate Blood Pressure 128/80 O2 Sat by Pulse 98 95 97 Oximetry 12/19/20 11:25 Temperature 98.7 F Pulse Rate 56 L Respiratory 19 Rate Blood Pressure 133/76 O2 Sat by Pulse 97 Oximetry - General physical appearance well developed, no distress, no pain, obese - Eyes PERRL, normal occular movement - ENT no hearing loss - Respiratory normal expansion, normal respiratory effort - Abdomen soft, not tender, not guarding, not rigid, other (GERALDINE drain serosanguineous, incisions clean dry and intact. Dressings changed and drain removed.) - Labs 12/19/20 04:00 12/19/20 06:25 Diabetes panel 12/19/20 Range/Units 06:25 Sodium 140 (137-145) mmol/L Potassium 4.0 (3.6-5.0) mmol/L Chloride 109.8 H (98-107) mmol/L Carbon Dioxide 20 L (22-30) mmol/L BUN 31 H (9-20) mg/dL Creatinine 2.8 H (0.8-1.3) mg/dL Glucose 125 H (75-100) mg/dL Calcium 8.1 L (8.4-10.2) mg/dL AST 64 H (5-40) units/L ALT 39 (7-56) units/L Alkaline Phosphatase 55 (35-129) units/L Total Protein 6.3 (6.3-8.2) g/dL Albumin 2.8 L (3.9-5) g/dL Calcium panel 12/19/20 Range/Units 06:25 Calcium 8.1 L (8.4-10.2) mg/dL Albumin 2.8 L (3.9-5) g/dL Pituitary panel 12/19/20 Range/Units 06:25 Sodium 140 (137-145) mmol/L Potassium 4.0 (3.6-5.0) mmol/L Chloride 109.8 H (98-107) mmol/L Carbon Dioxide 20 L (22-30) mmol/L BUN 31 H (9-20) mg/dL Creatinine 2.8 H (0.8-1.3) mg/dL Glucose 125 H (75-100) mg/dL Calcium 8.1 L (8.4-10.2) mg/dL Adrenal panel 12/19/20 Range/Units 06:25 Sodium 140 (137-145) mmol/L Potassium 4.0 (3.6-5.0) mmol/L Chloride 109.8 H (98-107) mmol/L Carbon Dioxide 20 L (22-30) mmol/L BUN 31 H (9-20) mg/dL Creatinine 2.8 H (0.8-1.3) mg/dL Glucose 125 H (75-100) mg/dL Calcium 8.1 L (8.4-10.2) mg/dL Total Bilirubin 0.70 (0.1-1.2) mg/dL AST 64 H (5-40) units/L ALT 39 (7-56) units/L Alkaline Phosphatase 55 (35-129) units/L Total Protein 6.3 (6.3-8.2) g/dL Albumin 2.8 L (3.9-5) g/dL
[2020-12-19] MEDS: PANTOPRAZOLE 40 MG TAB PO SCH (17:39)
--- NOTE | 2020-12-19 17:46 | Ultrasound Report ---
ULTRASOUND RENAL INDICATION: renal ultrasound for RENATO on CKD COMPARISON: CT abdomen and pelvis 12/12/2020. FINDINGS: RIGHT KIDNEY: Size: 13.9 cm. Echogenicity: Normal. Cortical thickness: Normal. Stones: None. Hydronephrosis: None. Cyst or mass: Multiple scattered cysts are seen measuring up to 7.1 cm in the midportion.. LEFT KIDNEY: Size: 11.6 cm. Echogenicity: Normal. Cortical thickness: Normal. Stones: None. Hydronephrosis: None. Cyst or mass: Central 2.4 cm probable parapelvic cyst is noted. Urinary Bladder: No significant abnormality. Free Fluid: None. Additional Findings: None. IMPRESSION: No acute sonographic abnormality of the kidneys Signer Name: Audi Wade MD Signed: 12/19/2020 5:42 PM Workstation Name: [id number]
--- NOTE | 2020-12-19 20:39 | Progress Note ---
Assessment and Plan Assessment and plan: Assessment: Recurrent acute/subacute cholecystitis with cholelithiasis with fever and leukocytosis Normal LFTs and lipase, no evidence of pancreatitis s/p laparoscopic cholecystectomy on 12/16/2020, found gallbladder gangrenous Leukocytosis worse and remains febrile postoperatively on Zosyn but hemody namically stable LFTs normal postoperatively RENATO postoperatively, 1.9-2.63.6 and today 2.8 History of CKD stage III, with baseline renal function, baseline creatinine 1.8- 2.1. Borderline post residual urine volume, 340 mL by bladder scan with history of hesitancy, started Flomax Hypertension History of GERD Plan: Continue incentive spirometry for the fever and bibasilar Rales postoperatively Continue Zosyn, blood cultures negative to date, monitor closely for sepsis Continue Flomax for borderline urinary retention Continue hydration with IV fluids and monitor urine output renal function clos nicolasa Patient is tolerating regular diet but still no BM since admitted. No significant abdominal pains. No nausea. Start MiraLAX. Fevers resolving, none today. Leukocytosis resolving. Receiving IV fluids and creatinine is improving. Started on Flomax for borderline retention. Discharge pending further improvement of renal function, DC likely tomorrow. He will need to have follow-up with nephrology. DVT prophylaxis: Lovenox GI prophylaxis: Protonix Discussed with the patient and the nursing staff History Interval history: Patient is tolerating regular diet but still no BM since admitted. No significant abdominal pains. No nausea. Fevers symptoms resolving, none today. Leukocytosis resolving. Receiving IV fluids and the creatinine is improving. Started on Flomax for borderline retention. Discharge pending further improvement of renal function. Hospitalist Physical - Constitutional Vitals: Temp Pulse Resp BP Pulse Ox 98.7 F 56 L 19 133/76 97 12/19/20 11:25 12/19/20 11:25 12/19/20 11:25 12/19/20 11:25 12/19/20 11:25 General appearance: Present: no acute distress, well-nourished, other (Obese) - EENT Eyes: Present: PERRL, EOM intact ENT: hearing intact, clear oral mucosa - Neck Neck: Present: supple - Respiratory Respiratory effort: normal Respiratory: bilateral: CTA - Cardiovascular Rhythm: regular - Extremities Extremities: No edema - Abdominal General gastrointestinal: other (Soft, no significant distention, mild tenderness in RUQ with deep palpation, bowel sounds present.) - Integumentary Integumentary: Absent: rash - Psychiatric Psychiatric: appropriate mood/affect - Neurologic Neurologic: no focal deficits HEART Score - HEART Score Troponin: Troponin T < 0.010 ng/mL (0.00-0.029) 12/15/20 15:32 Results - Labs CBC & Chem 7: 12/19/20 04:00 12/19/20 06:25 Labs: Laboratory Last Values WBC 9.5 K/mm3 (4.5-11.0) 12/19/20 04:00 RBC 3.79 M/mm3 (3.65-5.03) 12/19/20 04:00 Hgb 12.0 gm/dl (11.8-15.2) 12/19/20 04:00 Hct 36.3 % (35.5-45.6) 12/19/20 04:00 MCV 96 fl (84-94) H 12/19/20 04:00 MCH 32 pg (28-32) 12/19/20 04:00 MCHC 33 % (32-34) 12/19/20 04:00 RDW 13.1 % (13.2-15.2) L 12/19/20 04:00 Plt Count 238 K/mm3 (140-440) 12/19/20 04:00 Lymph % (Auto) 15.4 % (13.4-35.0) 12/19/20 04:00 [place] % (Auto) 7.1 % (0.0-7.3) 12/19/20 04:00 Eos % (Auto) 4.0 % (0.0-4.3) 12/19/20 04:00 Baso % (Auto) 0.4 % (0.0-1.8) 12/19/20 04:00 Lymph # (Auto) 1.5 K/mm3 (1.2-5.4) 12/19/20 04:00 [place] # (Auto) 0.7 K/mm3 (0.0-0.8) 12/19/20 04:00 Eos # (Auto) 0.4 K/mm3 (0.0-0.4) 12/19/20 04:00 Baso # (Auto) 0.0 K/mm3 (0.0-0.1) 12/19/20 04:00 Seg Neutrophils % 73.1 % (40.0-70.0) H 12/19/20 04:00 Seg Neutrophils # 7.0 K/mm3 (1.8-7.7) 12/19/20 04:00 PT 13.8 Sec. (12.2-14.9) 12/15/20 08:49 INR 0.96 (0.87-1.13) 12/15/20 08:49 APTT 27.5 Sec. (24.2-36.6) 12/15/20 08:49 Sodium 140 mmol/L (137-145) 12/19/20 06:25 Potassium 4.0 mmol/L (3.6-5.0) 12/19/20 06:25 Chloride 109.8 mmol/L (98-107) H 12/19/20 06:25 Carbon Dioxide 20 mmol/L (22-30) L 12/19/20 06:25 Anion Gap 14 mmol/L 12/19/20 06:25 BUN 31 mg/dL (9-20) H 12/19/20 06:25 Creatinine 2.8 mg/dL (0.8-1.3) H 12/19/20 06:25 Estimated GFR 27 ml/min 12/19/20 06:25 BUN/Creatinine Ratio 11 % 12/19/20 06:25 Glucose 125 mg/dL (75-100) H 12/19/20 06:25 POC Glucose 72 mg/dL (70-105) 12/18/20 10:59 Lactic Acid 1.40 mmol/L (0.7-2.0) 12/17/20 14:27 Calcium 8.1 mg/dL (8.4-10.2) L 12/19/20 06:25 Total Bilirubin 0.70 mg/dL (0.1-1.2) 12/19/20 06:25 AST 64 units/L (5-40) H 12/19/20 06:25 ALT 39 units/L (7-56) 12/19/20 06:25 Alkaline Phosphatase 55 units/L (35-129) 12/19/20 06:25 Troponin T < 0.010 ng/mL (0.00-0.029) 12/15/20 15:32 Total Protein 6.3 g/dL (6.3-8.2) 12/19/20 06:25 Albumin 2.8 g/dL (3.9-5) L 12/19/20 06:25 Albumin/Globulin Ratio 0.8 % 12/19/20 06:25 Lipase 46 units/L (13-60) 12/15/20 08:49 Urine Color Yellow (Yellow) 12/15/20 Unknown Urine Turbidity Clear (Clear) 12/15/20 Unknown Urine pH 5.0 (5.0-7.0) 12/15/20 Unknown Ur Specific [place] 1.018 (1.003-1.030) 12/15/20 Unknown Urine Protein 30 mg/dl mg/dL (Negative) 12/15/20 Unknown Urine Glucose (UA) Neg mg/dL (Negative) 12/15/20 Unknown Urine Ketones 20 mg/dL (Negative) 12/15/20 Unknown Urine Blood Sm (Negative) 12/15/20 Unknown Urine Nitrite Neg (Negative) 12/15/20 Unknown Urine Bilirubin Neg (Negative) 12/15/20 Unknown Urine Urobilinogen < 2.0 mg/dL (<2.0) 12/15/20 Unknown Ur Leukocyte Esterase Neg (Negative) 12/15/20 Unknown Urine WBC (Auto) 1.0 /HPF (0.0-6.0) 12/15/20 Unknown Urine RBC (Auto) 2.0 /HPF (0.0-6.0) 12/15/20 Unknown U Epithel Cells (Auto) 1.0 /HPF (0-13.0) 12/15/20 Unknown Urine Mucus Few /HPF 12/15/20 Unknown Coronavirus (PCR) Negative (Negative) 12/15/20 11:10 Microbiology: Microbiology 12/17/20 14:40 Peripheral/Venous Blood Culture - Preliminary NO GROWTH AFTER 24 HOURS 12/17/20 14:27 Peripheral/Venous Blood Culture - Preliminary NO GROWTH AFTER 24 HOURS Santos/IV: Voiding Method Urinal Active Medications - Current Medications Current Medications: Generic Name Dose Route Start Last Admin Trade Name Freq PRN Reason Stop Dose Admin Enoxaparin Sodium 30 mg 12/18/20 10:00 12/19/20 09:54 Enoxaparin 30 Mg/0.3 Ml Inj SUB-Q 30 mg QDAY RENETTA Administration Protocol Hydralazine HCl 10 mg 12/16/20 04:16 Hydralazine 20 Mg/1 Ml Inj IV Q6HR PRN SBP above 160 Piperacillin Sod/Tazobactam Sod 2.25 gm in 50 mls @ 100 mls/hr 12/17/20 18:00 12/19/20 17:40 Zosyn/Ns 2.25 Gm/50ml IV 100 mls/hr Q6HR RENETTA Administration Sodium Chloride 1,000 mls @ 125 mls/hr 12/17/20 12:00 12/19/20 13:47 Nacl 0.9% 1000 Ml IV 125 mls/hr DIRECT RENETTA Administration Ondansetron HCl 4 mg 12/15/20 14:34 12/16/20 04:29 Ondansetron 4 Mg/2 Ml Inj IV 4 mg Q6H PRN Administration Nausea And Vomiting Oxycodone/Acetaminophen 1 tab 12/18/20 06:22 12/19/20 12:39 Oxycodone /Acetaminophen 5-325mg Tab PO 1 tab Q6H PRN Administration Pain, Moderate (4-6) Pantoprazole Sodium 40 mg 12/19/20 16:30 12/19/20 17:39 Pantoprazole 40 Mg Tab PO 40 mg BIDAC RENETTA Administration Tamsulosin HCl 0.4 mg 12/19/20 08:00 12/19/20 07:45 Tamsulosin 0.4 Mg Cap PO 0.4 mg QDAY RENETTA Administration
[2020-12-20] MEDS: SODIUM CHLORIDE 0.9% 1000 ML 1,000 ML IV SCH (00:15)
[2020-12-20] MEDS: PIPERACIL-TAZO 2.25 GM/50 ML 2.25 GM/50 ML BAG IV SCH ×4 (00:16→19:28)
[2020-12-20] MEDS: oxyCODONE /ACETAMINOPHEN 5-325MG TAB PO PRN (03:14)
[2020-12-20 08:41] LABS: Albumin 2.7 g/dL (3.9-5); Calcium 8.3 mg/dL (8.4-10.2)
[2020-12-20] MEDS ORDERED: POLYETHYLENE GLYCOL 3350 17 GM POWDER PO SCH (10:00)
[2020-12-20] MEDS ORDERED: LIDOCAINE 1%/EPINEPHRINE 1:100,000 VIAL (20 ML) INFILTRATI NR (12:15)
--- NOTE | 2020-12-20 13:00 | Progress Note ---
Assessment and Plan - Patient Problems (1) Acute cholecystitis Current Visit: Yes Status: Acute Plan to address problem: 1) Okay for discharge 2) Regular diet 3) No lifting or straining 4) F/u with me in one week 5) No bathing or showers for 3 days 6) Discharge on narcotic of choice and Levaquin, 500 mg po qday X 7 days. Subjective Date of service: 12/20/20 Patient Reports: Positive: no new complaints, feels better, pain is less, tolerating a regular diet. Negative: diarrhea, nausea, vomiting Objective Vital Signs - 12hr 12/20/20 12/20/20 05:47 10:20 Temperature 98.2 F Pulse Rate 65 Respiratory 20 Rate Blood Pressure 148/73 O2 Sat by Pulse 97 99 Oximetry - Abdomen soft, not tender, bowel sounds normal, not rebound, not guarding - Labs 12/19/20 04:00 12/20/20 07:45 Diabetes panel 12/20/20 Range/Units 07:45 Sodium 145 (137-145) mmol/L Potassium 4.6 (3.6-5.0) mmol/L Chloride 114.0 H (98-107) mmol/L Carbon Dioxide 21 L (22-30) mmol/L BUN 24 H (9-20) mg/dL Creatinine 2.5 H (0.8-1.3) mg/dL Glucose 111 H (75-100) mg/dL Calcium 8.3 L (8.4-10.2) mg/dL AST 45 H (5-40) units/L ALT 32 (7-56) units/L Alkaline Phosphatase 51 (35-129) units/L Total Protein 6.1 L (6.3-8.2) g/dL Albumin 2.7 L (3.9-5) g/dL Calcium panel 12/20/20 Range/Units 07:45 Calcium 8.3 L (8.4-10.2) mg/dL Albumin 2.7 L (3.9-5) g/dL Pituitary panel 12/20/20 Range/Units 07:45 Sodium 145 (137-145) mmol/L Potassium 4.6 (3.6-5.0) mmol/L Chloride 114.0 H (98-107) mmol/L Carbon Dioxide 21 L (22-30) mmol/L BUN 24 H (9-20) mg/dL Creatinine 2.5 H (0.8-1.3) mg/dL Glucose 111 H (75-100) mg/dL Calcium 8.3 L (8.4-10.2) mg/dL Adrenal panel 12/20/20 Range/Units 07:45 Sodium 145 (137-145) mmol/L Potassium 4.6 (3.6-5.0) mmol/L Chloride 114.0 H (98-107) mmol/L Carbon Dioxide 21 L (22-30) mmol/L BUN 24 H (9-20) mg/dL Creatinine 2.5 H (0.8-1.3) mg/dL Glucose 111 H (75-100) mg/dL Calcium 8.3 L (8.4-10.2) mg/dL Total Bilirubin 0.40 (0.1-1.2) mg/dL AST 45 H (5-40) units/L ALT 32 (7-56) units/L Alkaline Phosphatase 51 (35-129) units/L Total Protein 6.1 L (6.3-8.2) g/dL Albumin 2.7 L (3.9-5) g/dL
--- NOTE | 2020-12-20 15:14 | Consultation ---
History of Present Illness - Reason for Consult Consult date: 12/20/20 acute renal failure, chronic renal failure - History of Present Illness The patient is a 70 YO male with history significant for Morbid Obesity, HTN, CKD stage 3 and GERD who presented to [facility] with upper abdominal pain, nausea and vomiting of few days duration. He was seen on 12/12/2020 and work-up at that time showed cholelithiasis with possible acute cholecystitis on CT imaging. His symptoms resolved in the ED and patient was discharged for outpatient follow-up with Dr. Lanier. Subsequently patient was seen by Dr. Lanier in his office and scheduled for further work-up pending possible surgery. However, his symptoms recurred with epigastric pain, nausea and vomiting. Patient denied fever, chills, chest pain, dyspnea, palpitation, dizziness, syncopal episode, diarrhea, dysuria or hematuria. Patient underwent Lap-Tessa on 12/16. Labs significant for Creat 3.6. Patient has seen a [employer]udge [employer] Operator in the past but not sure about the name or phone number. Nephrology was consulted for further evaluation and treatment of RENATO. Past History Past Medical History: GERD, hypertension Medications and Allergies Allergies Allergy/AdvReac Type Severity Reaction Status Date / Time ibuprofen [From Motrin] AdvReac Hives Verified 07/13/18 12:08 Home Medications Medication Instructions Recorded Confirmed Last Taken Type Valsartan 160 mg PO DAILY 06/01/20 12/16/20 12/16/20 07:59 History Omeprazole 40 mg PO DAILY 12/15/20 12/16/20 12/15/20 History Tamsulosin [Flomax] 0.4 mg PO QDAY #30 capsule 12/21/20 Unknown Rx levoFLOXacin [Levaquin TAB] 500 mg PO QDAY #7 tablet 12/21/20 Unknown Rx oxyCODONE /ACETAMINOPHEN [Percocet 1 tab PO Q6H PRN #12 tablet 12/21/20 Unknown Rx 5/325 mg] Active Meds: Active Medications Enoxaparin Sodium (Enoxaparin 30 Mg/0.3 Ml Inj) 30 mg SUB-Q QDAY RENETTA; Protocol Last Admin: 12/19/20 09:54 Dose: 30 mg Documented by: Hydralazine HCl (Hydralazine 20 Mg/1 Ml Inj) 10 mg IV Q6HR PRN PRN Reason: SBP above 160 Piperacillin Sod/Tazobactam Sod (Zosyn/Ns 2.25 Gm/50ml) 2.25 gm in 50 mls @ 100 mls/hr IV Q6HR [facility] Last Admin: 12/20/20 06:06 Dose: 100 mls/hr Documented by: Ondansetron HCl (Ondansetron 4 Mg/2 Ml Inj) 4 mg IV Q6H PRN PRN Reason: Nausea And Vomiting Last Admin: 12/16/20 04:29 Dose: 4 mg Documented by: Oxycodone/Acetaminophen (Oxycodone /Acetaminophen 5-325mg Tab) 1 tab PO Q6H PRN PRN Reason: Pain, Moderate (4-6) Last Admin: 12/20/20 03:14 Dose: 1 tab Documented by: Pantoprazole Sodium (Pantoprazole 40 Mg Tab) 40 mg PO BIDAC [facility] Last Admin: 12/19/20 17:39 Dose: 40 mg Documented by: Polyethylene Glycol (Polyethylene Glycol 3350 17 Gm Powder) 17 gm PO QDAY [facility] Tamsulosin HCl (Tamsulosin 0.4 Mg Cap) 0.4 mg PO QDAY [facility] Last Admin: 12/19/20 07:45 Dose: 0.4 mg Documented by: Review of Systems All systems: negative Exam - Vital Signs Vital signs: Vital Signs Temp Pulse Resp BP Pulse Ox 97.8 F 79 20 152/84 99 12/15/20 08:39 12/15/20 08:39 12/15/20 08:39 12/15/20 08:39 12/15/20 08:39 Results - Lab Results 12/21/20 04:25 12/21/20 04:25 Most recent lab results Calcium 8.3 mg/dL (8.4-10.2) L 12/20/20 07:45 Assessment and Plan 1. Acute kidney injury: Vasomotor RENATO superimposed on CKD in the setting of volume depletion. Renal US negative. IV fluids. Monitor renal function. Creatinine level continue to improve. Avoid nephrotoxic agents. Meds dosage based on GFR. 2. FEN: Mild metabolic acidosis, monitor. Monitor lytes and volume status. 3. Acute cholecystitis: S/p Lap-Tessa 12/16. 4. Hypertension, POA: Monitor BP. Adjust meds as needed. Subjective: Patient was seen and examined at the bedside. Examination: General appearance: well-developed, obese, appears stated age, no distress HEENT: atraumatic Neck: trachea midline Respiratory: ctab Heart: S1S2, regular, no murmur Abdomen: soft, bowel sounds heard, NT Integumentary: no rash Neurologic: AO, able to move extremities Ext: no edema
[2020-12-20] MEDS: PANTOPRAZOLE 40 MG TAB PO SCH (16:37)
--- NOTE | 2020-12-20 19:32 | Progress Note ---
Assessment and Plan Assessment and plan: Assessment: Recurrent acute/subacute cholecystitis with cholelithiasis with fever and leukocytosis Normal LFTs and lipase, no evidence of pancreatitis s/p laparoscopic cholecystectomy on 12/16/2020, found gallbladder gangrenous Leukocytosis was worse and remains febrile postoperatively on Zosyn but he modynamically stable, resolving now LFTs normal postoperatively RENATO postoperatively, 1.9-2.63.6 and improving but not to baseline, yet History of CKD stage III, with baseline renal function, baseline creatinine 1.8- 2.1. Borderline post residual urine volume, 340 mL by bladder scan with history of h esitancy, started Flomax and a post residual volume is less than 50 mL Hypertension History of GERD Plan: Continue incentive spirometry for the fever and bibasilar Rales postoperatively Continue Zosyn, blood cultures negative to date, monitor closely for sepsis Continue Flomax for borderline urinary retention Continue hydration with IV fluids and monitor urine output renal function closely 12/20/2020: Had a loose BM yesterday, tolerating regular diet. Fever resolved. Leukocytosis resolving remains afebrile with stable vital signs. Creatinine is improving but not to baseline yet. Borderline urinary retention resolved with Flomax monitoring with bladder scans. Patient developed mild hematuria this late afternoon, Lovenox stopped, discharge deferred for further monitoring. Urinary tract imaging unremarkable on recent CT and ultrasound. May be discharged tomorrow if hematuria resolves to be followed by his primary project management consultant in a week and urology work-up as outpatient. DVT prophylaxis: Lovenox GI prophylaxis: Protonix Discussed with the patient and the nursing staff History Interval history: Had a loose BM yesterday, tolerating regular diet. Fever resolved. Leukocytosis resolving remains afebrile with stable vital signs. Creatinine is improving but not to baseline yet. Borderline urinary retention resolved with Flomax monitoring with bladder scans. Patient developed mild hematuria this late afternoon, Lovenox stopped, discharge deferred. Urinary tract imaging unremarkable on recent CT and ultrasound. Hospitalist Physical - Constitutional Vitals: Temp Pulse Resp BP Pulse Ox 98.9 F 84 18 144/84 97 12/20/20 16:21 12/20/20 16:21 12/20/20 16:21 12/20/20 16:21 12/20/20 16:21 General appearance: Present: no acute distress, well-nourished, obese, malodorous - EENT Eyes: Present: PERRL, EOM intact ENT: clear oral mucosa - Neck Neck: Present: supple - Respiratory Respiratory effort: normal Respiratory: bilateral: CTA - Cardiovascular Rhythm: regular - Extremities Extremities: No edema - Abdominal General gastrointestinal: soft, tender (Minimal RUQ tenderness), non-distended, normal bowel sounds - Integumentary Integumentary: Absent: rash - Psychiatric Psychiatric: appropriate mood/affect - Neurologic Neurologic: no focal deficits HEART Score - HEART Score Troponin: Troponin T < 0.010 ng/mL (0.00-0.029) 12/15/20 15:32 Results - Labs CBC & Chem 7: 12/19/20 04:00 12/20/20 07:45 Labs: Laboratory Last Values WBC 9.5 K/mm3 (4.5-11.0) 12/19/20 04:00 RBC 3.79 M/mm3 (3.65-5.03) 12/19/20 04:00 Hgb 12.0 gm/dl (11.8-15.2) 12/19/20 04:00 Hct 36.3 % (35.5-45.6) 12/19/20 04:00 MCV 96 fl (84-94) H 12/19/20 04:00 MCH 32 pg (28-32) 12/19/20 04:00 MCHC 33 % (32-34) 12/19/20 04:00 RDW 13.1 % (13.2-15.2) L 12/19/20 04:00 Plt Count 238 K/mm3 (140-440) 12/19/20 04:00 Lymph % (Auto) 15.4 % (13.4-35.0) 12/19/20 04:00 [place] % (Auto) 7.1 % (0.0-7.3) 12/19/20 04:00 Eos % (Auto) 4.0 % (0.0-4.3) 12/19/20 04:00 Baso % (Auto) 0.4 % (0.0-1.8) 12/19/20 04:00 Lymph # (Auto) 1.5 K/mm3 (1.2-5.4) 12/19/20 04:00 [place] # (Auto) 0.7 K/mm3 (0.0-0.8) 12/19/20 04:00 Eos # (Auto) 0.4 K/mm3 (0.0-0.4) 12/19/20 04:00 Baso # (Auto) 0.0 K/mm3 (0.0-0.1) 12/19/20 04:00 Seg Neutrophils % 73.1 % (40.0-70.0) H 12/19/20 04:00 Seg Neutrophils # 7.0 K/mm3 (1.8-7.7) 12/19/20 04:00 PT 13.8 Sec. (12.2-14.9) 12/15/20 08:49 INR 0.96 (0.87-1.13) 12/15/20 08:49 APTT 27.5 Sec. (24.2-36.6) 12/15/20 08:49 Sodium 145 mmol/L (137-145) 12/20/20 07:45 Potassium 4.6 mmol/L (3.6-5.0) 12/20/20 07:45 Chloride 114.0 mmol/L (98-107) H 12/20/20 07:45 Carbon Dioxide 21 mmol/L (22-30) L 12/20/20 07:45 Anion Gap 15 mmol/L 12/20/20 07:45 BUN 24 mg/dL (9-20) H 12/20/20 07:45 Creatinine 2.5 mg/dL (0.8-1.3) H 12/20/20 07:45 Estimated GFR 31 ml/min 12/20/20 07:45 BUN/Creatinine Ratio 10 % 12/20/20 07:45 Glucose 111 mg/dL (75-100) H 12/20/20 07:45 POC Glucose 72 mg/dL (70-105) 12/18/20 10:59 Lactic Acid 1.40 mmol/L (0.7-2.0) 12/17/20 14:27 Calcium 8.3 mg/dL (8.4-10.2) L 12/20/20 07:45 Total Bilirubin 0.40 mg/dL (0.1-1.2) 12/20/20 07:45 AST 45 units/L (5-40) H 12/20/20 07:45 ALT 32 units/L (7-56) 12/20/20 07:45 Alkaline Phosphatase 51 units/L (35-129) 12/20/20 07:45 Troponin T < 0.010 ng/mL (0.00-0.029) 12/15/20 15:32 Total Protein 6.1 g/dL (6.3-8.2) L 12/20/20 07:45 Albumin 2.7 g/dL (3.9-5) L 12/20/20 07:45 Albumin/Globulin Ratio 0.8 % 12/20/20 07:45 Lipase 46 units/L (13-60) 12/15/20 08:49 Urine Color Yellow (Yellow) 12/15/20 Unknown Urine Turbidity Clear (Clear) 12/15/20 Unknown Urine pH 5.0 (5.0-7.0) 12/15/20 Unknown Ur Specific [place] 1.018 (1.003-1.030) 12/15/20 Unknown Urine Protein 30 mg/dl mg/dL (Negative) 12/15/20 Unknown Urine Glucose (UA) Neg mg/dL (Negative) 12/15/20 Unknown Urine Ketones 20 mg/dL (Negative) 12/15/20 Unknown Urine Blood Sm (Negative) 12/15/20 Unknown Urine Nitrite Neg (Negative) 12/15/20 Unknown Urine Bilirubin Neg (Negative) 12/15/20 Unknown Urine Urobilinogen < 2.0 mg/dL (<2.0) 12/15/20 Unknown Ur Leukocyte Esterase Neg (Negative) 12/15/20 Unknown Urine WBC (Auto) 1.0 /HPF (0.0-6.0) 12/15/20 Unknown Urine RBC (Auto) 2.0 /HPF (0.0-6.0) 12/15/20 Unknown U Epithel Cells (Auto) 1.0 /HPF (0-13.0) 12/15/20 Unknown Urine Mucus Few /HPF 12/15/20 Unknown Coronavirus (PCR) Negative (Negative) 12/15/20 11:10 Microbiology: Microbiology 12/17/20 14:40 Peripheral/Venous Blood Culture - Preliminary NO GROWTH AFTER 48 HOURS 12/17/20 14:27 Peripheral/Venous Blood Culture - Preliminary NO GROWTH AFTER 48 HOURS Santos/IV: Voiding Method Urinal Active Medications - Current Medications Current Medications: Generic Name Dose Route Start Last Admin Trade Name Freq PRN Reason Stop Dose Admin Hydralazine HCl 10 mg 12/16/20 04:16 Hydralazine 20 Mg/1 Ml Inj IV Q6HR PRN SBP above 160 Piperacillin Sod/Tazobactam Sod 2.25 gm in 50 mls @ 100 mls/hr 12/17/20 18:00 12/20/20 19:28 Zosyn/Ns 2.25 Gm/50ml IV 100 mls/hr Q6HR RENETTA Administration Sodium Chloride 1,000 mls @ 75 mls/hr 12/20/20 20:00 Nacl 0.45% 1000 Ml IV DIRECT RENETTA Ondansetron HCl 4 mg 12/15/20 14:34 12/16/20 04:29 Ondansetron 4 Mg/2 Ml Inj IV 4 mg Q6H PRN Administration Nausea And Vomiting Oxycodone/Acetaminophen 1 tab 12/18/20 06:22 12/20/20 03:14 Oxycodone /Acetaminophen 5-325mg Tab PO 1 tab Q6H PRN Administration Pain, Moderate (4-6) Pantoprazole Sodium 40 mg 12/19/20 16:30 12/20/20 16:37 Pantoprazole 40 Mg Tab PO 40 mg BIDAC RENETTA Administration Polyethylene Glycol 17 gm 12/20/20 10:00 Polyethylene Glycol 3350 17 Gm Powder PO QDAY RENETTA Tamsulosin HCl 0.4 mg 12/19/20 08:00 12/19/20 07:45 Tamsulosin 0.4 Mg Cap PO 0.4 mg QDAY RENETTA Administration
[2020-12-20] MEDS ORDERED: SODIUM CHLORIDE 0.45% 1000 ML 1,000 ML IV SCH (20:00)
[2020-12-20 21:16] LABS: Bilirubin,Urine NEG (Negative); Blood,Urine LG (Negative); Color,Urine Yellow (Yellow); Mucus,Urine FEW /HPF; Protein,Urine <15 mg/dL mg/dL (Negative); Urobilinogen,Urine < 2.0 mg/dL (<2.0)
[2020-12-20 21:18] LABS: RBC,Urine > 182.0 /HPF (0.0-6.0)
[2020-12-20 21:31] LABS: Protein/Creatinine Ratio,Urine 0.08
[2020-12-20 21:50] LABS: Creatinine,Urine 101.1 mg/dL (0.1-20.0)
[2020-12-21] MEDS: PIPERACIL-TAZO 2.25 GM/50 ML 2.25 GM/50 ML BAG IV SCH ×2 (00:05→06:45)
[2020-12-21 05:32] LABS: Basophils # (Auto) 0.1 K/mm3 (0.0-0.1); Basophils % (Auto) 0.7 % (0.0-1.8); Eosinophils # (Auto) 0.5 K/mm3 (0.0-0.4); Eosinophils % (Auto) 4.6 % (0.0-4.3); Hematocrit 34.4 % (35.5-45.6); Hemoglobin 11.4 gm/dl (11.8-15.2); Lymphocytes # (Auto) 2.1 K/mm3 (1.2-5.4); Lymphocytes % (Auto) 20.7 % (13.4-35.0); Mean Corpuscular HGB Conc 33 % (32-34); Mean Corpuscular Volume 95 fl (84-94); Monocytes # (Auto) 0.8 K/mm3 (0.0-0.8); Monocytes % (Auto) 7.6 % (0.0-7.3); Platelet Count 280 K/mm3 (140-440); Red Blood Count 3.63 M/mm3 (3.65-5.03); Red Cell Distribution Width 13.1 % (13.2-15.2)
[2020-12-21 05:42] VITALS: BP 153/78
[2020-12-21 05:47] LABS: Calcium 8.4 mg/dL (8.4-10.2)
[2020-12-21] MEDS: TAMSULOSIN 0.4 MG CAP PO SCH (09:07)
[2020-12-21] MEDS: PANTOPRAZOLE 40 MG TAB PO SCH (09:08)
[2020-12-21] MEDS: ENOXAPARIN 30 MG/0.3 ML INJ SUB-Q SCH (09:27)
--- NOTE | 2020-12-21 09:45 | Progress Note ---
Assessment and Plan 1. Acute kidney injury: Vasomotor RENATO superimposed on CKD in the setting of volume depletion. Renal US negative. IV fluids. Monitor renal function. Creatinine level continue to improve. Avoid nephrotoxic agents. Meds dosage based on GFR. 2. FEN: Mild metabolic acidosis, monitor. Replete K. Monitor lytes and volume status. 3. Acute cholecystitis: S/p Lap-Tessa 12/16. 4. Hypertension, POA: Monitor BP. Adjust meds as needed. Subjective: Patient was seen and examined at the bedside. Examination: General appearance: well-developed, obese, appears stated age, no distress HEENT: atraumatic Neck: trachea midline Respiratory: ctab Heart: S1S2, regular, no murmur Abdomen: soft, bowel sounds heard, NT Integumentary: no rash Neurologic: AO, able to move extremities Ext: no edema Subjective Date of service: 12/21/20 Objective - Vital Signs Vital signs: Vital Signs - 12hr 12/20/20 12/21/20 12/21/20 22:41 00:32 05:41 Temperature 98.7 F 98.7 F Pulse Rate 61 60 Respiratory 20 20 Rate Blood Pressure 165/78 153/78 O2 Sat by Pulse 96 96 95 Oximetry 12/21/20 09:25 Temperature Pulse Rate Respiratory Rate Blood Pressure O2 Sat by Pulse 97 Oximetry - Lab 12/21/20 04:25 12/21/20 04:25 Most recent lab results Calcium 8.4 mg/dL (8.4-10.2) 12/21/20 04:25 Urine Creatinine 101.1 mg/dL (0.1-20.0) H 12/20/20 20:51 Urine Sodium 122 mmol/L 12/20/20 20:51 Urine Total Protein 8 mg/dL (5-11.8) 12/20/20 20:51 Medications & Allergies - Medications Allergies/Adverse Reactions: Allergies ibuprofen [From Motrin] Adverse Reaction (Verified 07/13/18 12:08) Hives Home Medications: Home Medications Medication Instructions Recorded Confirmed Last Taken Type Valsartan 160 mg PO DAILY 06/01/20 12/16/20 12/16/20 07:59 History Omeprazole 40 mg PO DAILY 12/15/20 12/16/20 12/15/20 History Tamsulosin [Flomax] 0.4 mg PO QDAY #30 capsule 12/21/20 Unknown Rx levoFLOXacin [Levaquin TAB] 500 mg PO QDAY #7 tablet 12/21/20 Unknown Rx oxyCODONE /ACETAMINOPHEN [Percocet 1 tab PO Q6H PRN #12 tablet 12/21/20 Unknown Rx 5/325 mg] Active Medications: Generic Name Dose Route Start Last Admin Trade Name Freq PRN Reason Stop Dose Admin Hydralazine HCl 10 mg 12/16/20 04:16 Hydralazine 20 Mg/1 Ml Inj IV Q6HR PRN SBP above 160 Piperacillin Sod/Tazobactam Sod 2.25 gm in 50 mls @ 100 mls/hr 12/17/20 18:00 12/21/20 06:45 Zosyn/Ns 2.25 Gm/50ml IV 100 mls/hr Q6HR RENETTA Administration Sodium Chloride 1,000 mls @ 75 mls/hr 12/20/20 20:00 12/20/20 20:14 Nacl 0.45% 1000 Ml IV 75 mls/hr DIRECT RENETTA Administration Ondansetron HCl 4 mg 12/15/20 14:34 12/16/20 04:29 Ondansetron 4 Mg/2 Ml Inj IV 4 mg Q6H PRN Administration Nausea And Vomiting Oxycodone/Acetaminophen 1 tab 12/18/20 06:22 12/20/20 03:14 Oxycodone /Acetaminophen 5-325mg Tab PO 1 tab Q6H PRN Administration Pain, Moderate (4-6) Pantoprazole Sodium 40 mg 12/19/20 16:30 12/21/20 09:08 Pantoprazole 40 Mg Tab PO 40 mg BIDAC RENETTA Administration Polyethylene Glycol 17 gm 12/20/20 10:00 12/21/20 09:07 Polyethylene Glycol 3350 17 Gm Powder PO 17 gm QDAY RENETTA Administration Tamsulosin HCl 0.4 mg 12/19/20 08:00 12/21/20 09:07 Tamsulosin 0.4 Mg Cap PO 0.4 mg QDAY RENETTA Administration
--- NOTE | 2020-12-21 09:48 | Discharge Summary ---
Providers - Providers Date of Admission: 12/15/20 10:39 Date of discharge: 12/21/20 Attending physician: EDU CABRERA 12/19/20 18:53 Consult to Physician [CONS] Routine Comment: Consulting Provider: JOANNE QUEZADA Physician Instructions: Reason For Exam: RENATO on CKD Primary care physician: BUSINESS CENTER MANAGER Hospitalization Reason for admission: abd pain Condition: Fair Hospital course: 70 yo male with PMH of GERD and hypertension who presented to the ED with increasing epigastric pain, nausea and vomiting. He was in the ED several days ago [employer] for similar complaints. He was diagnosed with chronic cholecystitis and was referred to general surgeons office. The patient was seen in Dr. Lanier's office on 12/13/20 and RUQ US was scheduled. The patient was admitted to the hospital on 12/15 with diagnosis of acute cholecystitis. Patient was kept n.p.o. and started on IV Zosyn. The patient underwent laparoscopic cholecystectomy on 12/16 and was noted to have gangrenous gallbladder. Patient did well postoperatively and general surgery recommended patient could be discharged. Surgery recommended patient could be discharged on narcotic pain pills and Levaquin 500 mg p.o. daily x7 days. Patient is to follow-up with general surgery in 1 week. Patient's discharge was held due to hematuria likely related to traumatic Santos and treatment of Lovenox for DVT. Lovenox was stopped and hematuria has resolved. Renal ultrasound showed no acute abnormality. Patient appears to be at near baseline with creatinine. Patient is felt to have received maximal hospital benefit and will be discharged home. Dedicated discharge 35-minutes Disposition: 01 HOME / SELF CARE / HOMELESS Final Discharge Diagnosis (Prints w/discharge instructions): Gangrenous cholecystitis s/p laparoscopic cholecystectomy, sepsis, acute kidney injury on CKD stage III, vasomotor nephropathy Core Measure Documentation - Palliative Care Palliative Care/ Comfort Measures: Not Applicable - Core Measures Any of the following diagnoses?: none Exam - Constitutional Vitals: Temp Pulse Resp BP Pulse Ox 98.7 F 60 20 153/78 97 12/21/20 05:41 12/21/20 05:41 12/21/20 05:41 12/21/20 05:41 12/21/20 09:25 General appearance: Present: no acute distress, well-nourished - EENT Eyes: Present: PERRL ENT: hearing intact, clear oral mucosa - Neck Neck: Present: supple, normal ROM - Respiratory Respiratory effort: normal Respiratory: bilateral: CTA - Cardiovascular Heart Sounds: Present: S1 & S2. Absent: rub, click - Extremities Extremities: pulses symmetrical, No edema Peripheral Pulses: within normal limits - Abdominal General gastrointestinal: Present: soft, non-tender, non-distended, normal bowel sounds Male genitourinary: Present: normal - Integumentary Integumentary: Present: clear, warm, dry - Musculoskeletal Musculoskeletal: gait normal, strength equal bilaterally - Psychiatric Psychiatric: appropriate mood/affect, intact judgment & insight - Neurologic Neurologic: CNII-XII intact, moves all extremities Plan Activity: advance as tolerated Weight Bearing Status: Weight Bear as Tolerated Diet: regular Wound: per your surgeon's advice Special Instructions: other (No bathing or showers for 3 days) Additional Instructions: No bathing or showers for 3 days Follow up with: PRIMARY CARE, [Primary Care Provider] - 3-5 Days SERENA LANIER MD [Staff Physician] - 7 Days Prescriptions: Tamsulosin [Flomax] 0.4 mg PO QDAY #30 capsule levoFLOXacin [Levaquin TAB] 500 mg PO QDAY #7 tablet oxyCODONE /ACETAMINOPHEN [Percocet 5/325 mg] 1 tab PO Q6H PRN #12 tablet PRN Reason: Pain, Moderate (4-6)
[2020-12-21] MEDS ORDERED: POTASSIUM CHLORIDE ER 20 MEQ TAB PO NR (10:30)
== END 2020-12-21 13:50 | disposition home health service (06) | DRG 417 ==
LOC: ED 09:03 → 3A 10:39
PROVIDERS: ADMIT Internal Medicine; ATTEND Hospitalist
PROC: 0FT44ZZ Resection of Gallbladder, Percutaneous Endoscopic Approach (ICD-10-PCS; principal; 2020-12-16)
DX: K80.00 Calculus of gallbladder with acute cholecystitis without obstruction (principal); A41.9 Sepsis, unspecified organism; N17.0 Acute kidney failure with tubular necrosis; N18.30 Chronic kidney disease, stage 3 unspecified; Z20.822 Contact with and (suspected) exposure to COVID-19; Z88.8 Allergy status to other drugs, medicaments and biological substances; I12.9 Hypertensive chronic kidney disease with stage 1 through stage 4 chronic kidney disease, or unspecified chronic kidney disease; J44.9 Chronic obstructive pulmonary disease, unspecified; K21.9 Gastro-esophageal reflux disease without esophagitis; E66.3 Overweight; Z68.37 Body mass index [BMI] 37.0-37.9, adult
CPT/HCPCS: 36415; 71046; 74022; 74176; 76705; 76770; 80048; 80053; 80076; 81001; 82140; 82570; 82962; 83690; 84154; 84156; 84300; 84484; 85025; 85610; 85730; 87040; 88304; 93005; 94760; 96374; 96375; 99284; G0378; C9113; J0500; J1100; J1170; J1650; J2270; J2370; J2405; J2543; J2704; J2710; J2765; J3010; J7030; J7120; U0003